=== PATIENT | female | born 1955 | race African-American/Black ===

== ENCOUNTER 2016-06-12 10:51 | Inpatient (IN) ==
[2016-06-12 11:28] LABS: Basophils % 0.2 % (0.0-0.8); Eosinophils # 0.1 10*3/uL (0.0-0.87); Eosinophils % 1.7 % (0.00-10.9); Hematocrit 38.1 VOL% (35.7-47.0); Hemoglobin 11.9 GM/DL (12.0-16.0); Immature Granulocytes % 0.5 %; Immature Granulocytes Absolute 0.03 #; Lymphocytes # 2.2 10*3/uL (1.4-4.0); Lymphocytes % 36.2 % (21.3-54.2); Mean Corpuscular HGB Conc 31.2 GM/DL (32-36); Mean Corpuscular Hemoglobin 26 PG (27-34); Mean Corpuscular Volume 81.9 FL (87-102); Mean Platelet Volume 11.4 FL (9.6-12.0); Monocytes # 0.5 10*3/uL (0.11-0.8); Monocytes % 8.8 % (1.7-12.7); Neutrophils # 3.2 10*3/uL (1.4-7.4); Neutrophils % 52.6 % (38.7-73.9); Platelet Count 228 T/CUMM (130-400); Red Blood Count 4.65 MC/CUMM (3.8-5.5); Red Cell Distribution Width 14.5 % (9.3-17.3)
--- NOTE | 2016-06-12 11:34 | CT Report ---
CT of the head without contrast. Indication: Altered level of consciousness. Comparison: April 24, 2011. Within the left parietal lobe, there is new low density within white matter , moderately large in amount. There is no evidence of associated acute hemorrhage, there is no midline shift, or definite definable mass. No cortical infarcts are visible at this time. The ventricles are normal in size and configuration. The calvarium is intact. There is mild mucosal thickening within the ethmoid sinuses. There is calcification or postsurgical change involving the left globe. Impression: Interval development of an area of low density involving the white matter of the left parietal lobe. This could be related to a large area of subacute white matter ischemia, or could indicate vasogenic edema from infection or underlying mass. A contrasted MRI of the brain is recommended for further evaluation. PROCEDURE INTERPRETED AT [facility] DEPARTMENT OF RADIOLOGY Final Report Signed by: Dr. Abigail Santacruz
[2016-06-12] MEDS ORDERED: METOPROLOL TARTRATE 5 MG/5 ML VIAL IV STA (11:39)
--- NOTE | 2016-06-12 11:39 | Emergency Department Note ---
Salinas Kemp Brittany, am scribing for, and in the presence of, Stan Ordonez M.D. 11:32. José Luis Kemp Howard T, M.D., personally performed the services described in this documentation, ascribed by Marisel Niño in my presence, and it is both accurate and complete [id number] . Arrival - Arrival Chief Complaint: Neuro Stated Complaint: altered mental status ED Nursing Triage Note: pt reports increased confusion cant get out her words with some left sided tingling. drove herself to dr howell office this am and sent here per ems from here Mode of Arrival: Stretcher Limitations: No Limitations Source: Patient, EMS, Old Records Reviewed, RN Notes Reviewed Time Seen by Provider: 06/12/16 11:10 - History of Present Illness HPI Narrative: This is a 61 y/o black female,who presents to the ED for further evaluation of confusion. She states the confusion started 2 weeks ago, and has slowly gotten worse. Per EMS, she drove herself to her PCP, Dr. Howell. She complains of blurry vision to the right side and numbness to her fingers on the left hand. She denies any SOB, CP or RODRIGUEZ. Pt states she is unable to remember what new medication she started, but she knows she did start a new medication. She is unsure of if she fell but does have a contusion to the right side of her forehead. Pt has no other complaints/pain in the ED at this time. Pt has a PMHx of [place], HTN, heart murmur, NIDDM, dyslipidemia,and GERD. Pt has had a tubal ligation. Pt denies a family medical Hx. Pt denies a social Hx. Onset (ago): week(s) (Started 2 weeks ago) Consistency: constant Severity: moderate Allergies/Adverse Reactions: Allergies Allergy/AdvReac Type Severity Reaction Status Date / Time No Known Allergies Allergy Unverified 08/06/14 10:08 Home Medications: Home Medications Medication Instructions Recorded Confirmed Type Cyclobenzaprine [Flexeril] 10 mg PO Q6HR 08/06/14 08/06/14 History Escitalopram [Lexapro] 10 mg PO DAILY 08/06/14 08/06/14 History Gabapentin Cap/Tab [Neurontin 600 mg PO BEDTIME 08/06/14 08/06/14 History Cap/Tab] Meloxicam [Mobic] 7.5 mg PO BID 08/06/14 08/06/14 History Ramipril [Altace] 10 mg PO BID 08/06/14 08/06/14 History Tramadol HCl [Tramadol Tab] 50 mg PO Q6HR PRN #30 tablet 08/06/14 Rx Zolpidem Tartrate [Zolpidem 10 mg PO BEDTIME 08/06/14 08/06/14 History Tartrate] rOPINIRole [Requip] 1 mg PO BEDTIME 08/06/14 08/06/14 History Review of System - Review of System 12 point system: reviewed and no additional remarkable complaints except as stated - Review of System Eyes: Present: vision change (Blurry vision to the right eye) Cardiovascular: Absent: chest pain, palpitations, dyspnea on exertion Gastrointestinal: Absent: abdominal pain Neurological: Present: numbness (Numbness to the fingers on the left hand), confusion. Absent: headache Medical,Surgical,& Family Hx - Medical History Cardio: History of: Aneurysm (heart murmur), Hypertension, [place] Endocrine: History of: Diabetes Mellitus (NIDDM), Dyslipidemia Gastrointestinal: History of: GERD - Surgical History Reproductive Surgeries: Surgical HX of;: Tubal Ligation - Social History Smoking Status: Never smoker Frequency of Alcohol Use: None Type of Drug Use: None Lives With:: Children Exam Vital Signs: Vital Signs Temperature 97.6 F 06/12/16 10:51 Pulse Rate 84 06/12/16 10:51 Respiratory Rate 18 06/12/16 11:28 Blood Pressure 218/96 06/12/16 10:51 O2 Sat by Pulse Oximetry 100 06/12/16 10:51 - General General appearance: alert, in no apparent distress - Head Head exam: Present: other (Contusion to the right side of forehead) - Eye Eye exam: Present: normal appearance, PERRL, EOMI. Absent: nystagmus - ENT ENT exam: Present: normal exam, normal oropharynx, mucous membranes moist - Neck Neck exam: Present: normal inspection, full ROM, trachea midline. Absent: tenderness, thyromegaly - Chest Chest inspection: Present: normal inspection, symmetric chest wall rise. Absent : tenderness, rash, abscess - Respiratory Respiratory exam: Present: normal lung sounds bilaterally. Absent: prolonged expiratory phase, rales, respiratory distress, rhonchi, stridor, wheezes - Cardiovascular Cardiovascular exam: Present: regular rate, normal rhythm, normal heart sounds. Absent: murmur, rubs, gallop, clicks - Abdominal Exam Abdominal exam: Present: soft, normal bowel sounds. Absent: distention, tenderness, guarding, rebound, rigidity - Extremities Exam Extremities exam: Present: normal inspection, full ROM, normal capillary refill. Absent: tenderness, pedal edema, joint swelling, calf tenderness - Back Exam Back exam: Present: normal inspection, full ROM. Absent: tenderness, muscle spasm, rashes - Neurological Exam Neurological exam: Present: alert (Alert but confused), CN II-XII intact, reflexes normal, other. Absent: oriented X3 (Disoriented to time and place, oriented to person ), motor sensory deficit - Psychiatric Psychiatric exam: Present: normal affect, normal mood. Absent: depressed, agitated, anxious, manic - Skin Skin exam: Present: warm, dry, intact, normal color. Absent: rash, cyanosis, diaphoresis Course Course Narrative: Medical decision making: History and exam and CT scan suggests some type of neurologic process causing her symptoms, no indication for transfer will admit to hospitalist service with neurology consult. Results - Labs CBC & BMP: 06/12/16 11:03 Lab Results: I have reviewed the patients labs - Diagnostic Findings Procedure: CT: report reviewed by me (CT head without contrast: Intreval development of an area of low denstity invloving the white matter of the left parietal lob. This could be related to a large area of subacute white matter ischemia, or could indicate vasogenic edema from infection or underlying mass. A contrasted MRI of the brain is reccomned for further evaluation. ) Disposition Clinical Impression: Cerebrovascular accident, Convulsions, HTN (hypertension) Case discussed with: patient Disposition: Disch/Xfer-Ipshort Term Hos Condition: Stable Time of Disposition: 11:38
[2016-06-12 11:43] LABS: Alanine Aminotransferase 24 U/L (13-56); Albumin 3.2 G/DL (3.4-5.0); Alkaline Phosphatase 81 U/L (45-117); Aspartate Amino Transferase 16 U/L (0-37); Bilirubin,Total < 0.39 MG/DL (0.2-1.0); Blood Urea Nitrogen 18 MG/DL (7-18); Calcium 9.3 MG/DL (8.5-10.1); Glucose 77 MG/DL (74-106); Osmolality,Calculated 283.1 MOS/KG (273-304); Potassium 4.1 MMOL/L (3.5-5.1); Sodium 142 MMOL/L (136-145); Total Protein 7.7 G/DL (6.4-8.3); Troponin I Only < 0.015 NG/ML (0.00-0.045)
[2016-06-12] MEDS ORDERED: ONDANSETRON 4 MG/2 ML VIAL IV PRN (11:45)
[2016-06-12] MEDS ORDERED: LACTULOSE 20 GM/30 ML UDCUP PO PRN (11:45)
[2016-06-12 11:51] LABS: Amorphous Crystals,Urine Few /HPF (Few); Apearance,Urine Slightly Hazy (Clear); Bilirubin,Urine Negative (Negative); Blood, Urine Small mg/dL (Negative); Glucose,Urine (UA) Negative (Negative); Ketones,Urine Negative (Negative); Mucus,Urine Occasional /LPF (Occasional); Nitrite,Urine Negative (Negative); Protein,Urine Negative; RBC,Urine 4 /HPF (0-4); Squamous Epithelial Cell,Urine Occasional /HPF (0-10); Urine Color Yellow (Yellow); Urine Specific Gravity 1.019 (1.001-1.035); WBC,Urine <1 /HPF (0-6)
[2016-06-12 11:59] LABS: Alcohol Patient Result Negative (Negative); Barbiturates Screen,Urine Negative (Negative); Benzodiazepines Screen,Urine Negative (Negative); Cannabinoid Screen,Urine Negative (Negative); Opiate Screen,Urine Negative (Negative); Phencyclidine Screen,Urine Negative (Negative)
[2016-06-12] MEDS ORDERED: SODIUM CHLORIDE 0.9% 1,000 ML IV SCH (12:00)
[2016-06-12 12:10] LABS: Risk Ratio 3.59; VLDL CHOLESTEROL 26.4 MG/DL
--- NOTE | 2016-06-12 12:24 | Ultrasound Report ---
US carotid duplex BI Indication: Expressive aphasia, confusion. CAROTID ULTRASOUND Comparison: None. Findings: Grayscale, color Doppler and pulsed Doppler interrogation of the carotid and vertebral arteries performed. Severity of stenosis based on flow velocity measurements using NASCET criteria. Distal right ICA diameter: 6.6 mm Distal left ICA diameter: 6.6 mm Peak systolic flow velocities in centimeters per second are as follows: Right: CCA: 112 cm/s Proximal ICA: 103 Distal ICA: 95 ICA/CCA ratio: 0.9 Left: CCA: 121 cm/s Proximal ICA: 110 Distal ICA: 118 ICA/CCA ratio: 1.0 External carotid arteries: Both are patent with antegrade flow. Vertebral arteries: Both are patent with antegrade flow. Grayscale and color Doppler images: No significant focal plaque deposition identified, with normal color Doppler flow present. Pulse Doppler waveform interrogation: No significant spectral broadening. Impression: No hemodynamically significant stenosis of either ICA origin. PROCEDURE INTERPRETED AT [facility] DEPARTMENT OF RADIOLOGY Final Report Signed by: Reji Ching M.D.
[2016-06-12] MEDS ORDERED: METOPROLOL TARTRATE 5 MG/5 ML VIAL IV ONE (13:01)
--- NOTE | 2016-06-12 14:29 | Hospitalist History & Physical ---
Assessment and Plan - Time spent with patient Time spent with patient: Greater than 30 minutes (1) Cerebrovascular accident Status: Acute Assessment and plan: admit pt to med surg MRI brain with contrast as recommended by radiology per CT report Lipid panel, carotid dopplers, ECHO start on ASA 325 daily DVT prophylaxis PRN meds routine labs in AM resume home BP meds further plan and addendum to follow per Dr. Busch Current Visit: Yes (2) HTN (hypertension) Status: Acute Current Visit: Yes History of Present Illness Chief complaint: expressive aphasia History of present illness: Ms. Bird is a 61 year old female who presents to the ER today with expressive aphasia. She is awake and alert, she is aware of her location and tells me that she is able to identify objects such as phone and glove, but she is unable to produce the word. She is upset and crying. She tells me that her family just thinks she is confused but she is not confused. Her states he first noted symptoms one week ago, with sudden onset. Pt has some minimal weakness in her left leg, subjective. She has no facial droop or slurred speech. Her CT brain shows an area of low density involving the white matter of the left parietal lobe. Radiology has recommended MRI with contrast for further eval. She is hemodynamically stable at present. PMH includes HTN, DLD, heart murmur, Gerd. PSH of tubal ligation and . She does not smoke, drink or use drugs. Her PCP is Dr. Varghese. At present she denies chest pain, shortness of breath, fever, chills, headache, abdominal pain, n/v/d, dysuria. She does have bilat lower ext edema, she tells me this is normal for her. Home Medications Medication Instructions Recorded Confirmed Type Cyclobenzaprine [Flexeril] 10 mg PO Q8H PRN 08/06/14 06/12/16 History Escitalopram [Lexapro] 10 mg PO DAILY 08/06/14 06/12/16 History Meloxicam [Mobic] 7.5 mg PO BID 08/06/14 06/12/16 History Zolpidem Tartrate [Zolpidem 10 mg PO BEDTIME PRN 08/06/14 06/12/16 History Tartrate] rOPINIRole [Requip] 1 mg PO BEDTIME 08/06/14 06/12/16 History Furosemide Tab [Lasix Tab] 40 mg PO DAILY 06/12/16 06/12/16 History Gabapentin 100 mg PO QPM PRN 06/12/16 06/12/16 History Labetalol Tab [Trandate Tab] 200 mg PO BID 06/12/16 06/12/16 History Losartan Potassium 100 mg PO DAILY 06/12/16 06/12/16 History Phentermine HCl 37.5 mg PO DAILY 06/12/16 06/12/16 History Potassium Chloride 8 meq PO DAILY 06/12/16 06/12/16 History Topiramate 50 mg PO DAILY 06/12/16 06/12/16 History metFORMIN [Glucophage] 850 mg PO DAILY 06/12/16 06/12/16 History Allergies Allergy/AdvReac Type Severity Reaction Status Date / Time No Known Allergies Allergy Unverified 08/06/14 10:08 Medical,Surgical,& Family Hx - Medical History Cardio: History of: Aneurysm (heart murmur), Hypertension, [place] Endocrine: History of: Diabetes Mellitus (NIDDM), Dyslipidemia Gastrointestinal: History of: GERD - Surgical History Reproductive Surgeries: Surgical HX of;: Tubal Ligation - Social History Smoking Status: Never smoker Frequency of Alcohol Use: None Type of Drug Use: None 12 point system: reviewed and no additional remarkable complaints except as stated Exam - Constitutional Vitals: Period Temp Pulse Resp BP Sys/Griffin Pulse Ox Last 24 Hr 97.6 F-97.6 F 84-84 18-18 218-218/96-96 100 General appearance: no acute distress, morbidly obese - Head Head exam: Present: normal inspection, normocephalic - Eye Eye exam: Present: EOMI. Absent: scleral icterus Pupils: Present: BILLY, normal accommodation - ENT ENT exam: Present: normal exam, normal oropharynx - Neck Neck exam: Present: normal inspection. Absent: lymphadenopathy - Respiratory Respiratory exam: Present: clear to auscultation bilaterally. Absent: wheezes - Cardiovascular Cardiovascular exam: Present: regular rate and rhythm. Absent: tachycardia - GI/Abdominal GI/Abdominal exam: Present: normal bowel sounds, soft. Absent: tenderness - Extremities Exam Extremities exam: Present: normal inspection, full ROM. Absent: edema - Back Exam Back exam: Present: normal inspection. Absent: muscle spasm - Neurological Exam Neurological exam: Present: alert - Expanded Neurological Exam Neurological exam: Present: expressive aphasia Patient oriented to: Present: person Speech: Present: expressive aphasia Coma Scale Motor Response: Obeys Commands - Psychiatric Psychiatric exam: Present: normal affect, normal mood - Skin Skin exam: Present: normal color, warm, dry Results - Labs CBC & BMP: 06/12/16 11:03 06/12/16 11:03 Lab Results: I have reviewed the past 24 hour labs Quality Measures - Stroke Symptom Onset Unknown: Yes
[2016-06-12] MEDS ORDERED: ASPIRIN 325 MG TABLET ONE (15:07)
[2016-06-12] MEDS ORDERED: ACETAMINOPHEN 500 MG TABLET ONE (15:07)
[2016-06-12] MEDS: ASPIRIN 325 MG TABLET PO SCH (15:20)
[2016-06-12] MEDS: ACETAMINOPHEN 325 MG TABLET PO PRN ×2 (15:20→20:03)
[2016-06-12] MEDS ORDERED: LABETALOL 20 MG/4 ML SYRINGE IV PRN (15:34)
--- NOTE | 2016-06-12 16:57 | Magnetic Resonance Report ---
MRI of the brain with and without contrast. Indication: Altered level of consciousness. Confusion. Left-sided tingling. Blurry vision. CT of the head performed today demonstrated low density in the left parietal lobe raising concern for stroke, mass, or infectious process. Axial diffusion, axial ADC, axial T1, axial flair, axial T2, sagittal T1, axial T1 postcontrast on the sagittal T1 postcontrast, coronal T1 postcontrast. 20 cc gadolinium. No previous study. Corresponding to the area of abnormality seen on today's CT, in the left parieto-occipital white matter, there is a homogeneous rounded lesion measuring 2.9 cm in the craniocaudal dimension, 2.4 cm in the transverse dimension, and 3.0 cm in the AP dimension. It is hypointense on T1 and hyperintense on T2 and FLAIR. There is an incomplete ring along the lateral margin, which is low on T1, low on FLAIR, and increased on T2. On the diffusion images, there is slight increased signal corresponding to the mass, with a ring of intense signal surrounding it consistent with restricted diffusion. The ADC images demonstrate mildly increased signal corresponding to the mass, with decreased signal involving the rim. There is a small amount of surrounding vasogenic edema, without significant mass effect on the left lateral ventricle and with no evidence of midline shift. No enhancement of this lesion is seen. No evidence of hemorrhage. The venous sinuses are patent. Within the white matter of both cerebral hemispheres, there are a few tiny foci of white matter signal abnormality, nonspecific. No other areas of similar abnormality are seen. There is minimal opacification of both mastoid air cells. There is limited visualization of a mass lesion, of the left neck, closely associated with the left parotid gland, only partially included on this exam. This lesion measures 2.5 cm in AP dimension and is not completely included on the craniocaudal dimension. Its transverse dimension is 2.0 cm. This lesion is low T1 signal and enhances avidly with small associated cystic areas. Impression: 1. Corresponding to the abnormality seen on today's earlier CT, there is a homogeneous nonenhancing 2.4 x 3.0 cm intra-axial white matter mass in the left parieto-occipital lobe, with a small amount of surrounding edema. Primary brain neoplasm is a primary consideration, with low-grade astrocytoma being the most common intra-axial lesion without enhancement. Numerous other primary brain malignancies can present with this appearance.. Metastatic foci are more likely to have enhancement and increased surrounding edema. However, with the presence of a soft tissue mass in the left neck, metastatic disease must also be considered. This appearance is atypical for an ischemic lesion or an infectious lesion. The findings are also atypical for an inflammatory lesion or a demyelinating lesion. Careful clinical correlation is recommended. 2. Within the left neck, and only partially included on this exam, is an enhancing soft tissue mass with cystic areas, in the 2.5 cm range, closely associated with the left parotid gland. A contrasted CT of the soft tissues of the neck is recommended for further evaluation. 3. Small white matter signal abnormalities nonspecific, but likely related to chronic microvascular ischemia. PROCEDURE INTERPRETED AT [facility] DEPARTMENT OF RADIOLOGY Final Report Signed by: Dr. Abigail Santacruz
--- NOTE | 2016-06-12 18:15 | ECHO Report ---
Inga Bird Exam Date: 06/12/2016 12:35 Referring Physician: Technologist: Betty GRANADOS Age: 61 Ht (in): Wt (lb): Gender: F Exam Location: [facility] Echo Indications: R/o Stoke BP: / HR: Rhythm: Sinus Technical Quality: Good IMPRESSIONS No obvious embolic source. No mass or thrombus seen. Moderate concentric left ventricular hypertrophy with diastolic dysfunction. Left ventricular ejection fraction is estimated at >65 %. The left atrium is mildly enlarged. Mildly thickened mitral valve with mild mitral regurgitation. Aortic valve sclerosis without stenosis or regurgitation. Moderate tricuspid valve regurgitation. Tricuspid regurgitation velocities suggest a PAP of 24.6 mmHg + RAP. MEASUREMENTS (Male / Female) Normal Values 2D ECHO LV Diastolic Diameter PLAX 4.4 cm 4.2 - 5.9 / 3.9 - 5.3 cm LV Systolic Diameter PLAX 3.4 cm LV Fractional Shortening PLAX 22.4 % IVS Diastolic Thickness 1.5 cm 0.6 - 1.0 / 0.6 - 0.9 cm LVPW Diastolic Thickness 1.4 cm 0.6 - 1.0 / 0.6 - 0.9 cm RV Internal Dim ED PLAX 2.3 cm Aortic Root Diameter 2.7 cm LA Systolic Diameter LX 3.7 cm 3.0 - 4.0 / 2.7 - 3.8 cm DOPPLER TR Peak Velocity 248.0 cm/s TR Peak Gradient 24.6 mmHg FINDINGS Left Ventricle Moderately increased septal wall thickness. Moderately increased posterior wall thickness. Moderate concentric left ventricular hypertrophy with diastolic dysfunction. Left ventricular ejection fraction is estimated at >65 %. Right Ventricle Normal right ventricular size and systolic function. Right Atrium Normal right atrial size. Left Atrium The left atrium is mildly enlarged. Mitral Valve Mildly thickened mitral valve with mild mitral regurgitation. Aortic Valve Aortic valve sclerosis without stenosis or regurgitation. Tricuspid Valve Morphologically normal tricuspid valve. Moderate tricuspid valve regurgitation.tricuspid regurgitation velocities suggest a PAP of 24.6 mmHg + RAP. Pulmonic Valve Morphologically normal pulmonic valve. Pericardium No pericardial effusion. Aorta Normal size aortic root and proximal ascending aorta. Anuj Edward MD (Electronically Signed) Final Date: 12 June 2016 18:14
[2016-06-12] MEDS: DEXAMETHASONE 4 MG TABLET PO SCH (21:38)
[2016-06-13 08:58] LABS: Basophils % 0.2 % (0.0-0.8); Hematocrit 37.4 VOL% (35.7-47.0); Hemoglobin 11.6 GM/DL (12.0-16.0); Immature Granulocytes % 0.5 %; Immature Granulocytes Absolute 0.03 #; Lymphocytes # 1.2 10*3/uL (1.4-4.0); Lymphocytes % 20.6 % (21.3-54.2); Mean Corpuscular Hemoglobin 25 PG (27-34); Mean Platelet Volume 11.5 FL (9.6-12.0); Monocytes # 0.1 10*3/uL (0.11-0.8); Monocytes % 2.3 % (1.7-12.7); Neutrophils # 4.6 10*3/uL (1.4-7.4); Neutrophils % 76.4 % (38.7-73.9); Platelet Count 229 T/CUMM (130-400); Red Blood Count 4.56 MC/CUMM (3.8-5.5); Red Cell Distribution Width 14.4 % (9.3-17.3)
[2016-06-13] MEDS: PANTOPRAZOLE 40 MG TABLET PO SCH (09:22)
[2016-06-13] MEDS: ASPIRIN 325 MG TABLET PO SCH (09:22)
[2016-06-13] MEDS: DEXAMETHASONE 4 MG TABLET PO SCH ×2 (09:22→20:44)
[2016-06-13 09:39] LABS: Alanine Aminotransferase 21 U/L (13-56); Albumin 3.2 G/DL (3.4-5.0); Alkaline Phosphatase 74 U/L (45-117); Aspartate Amino Transferase 10 U/L (0-37); Bilirubin,Total < 0.39 MG/DL (0.2-1.0); Blood Urea Nitrogen 15 MG/DL (7-18); Calcium 8.9 MG/DL (8.5-10.1); Glucose 139 MG/DL (74-106); Osmolality,Calculated 288.8 MOS/KG (273-304); Potassium 4.2 MMOL/L (3.5-5.1); Sodium 144 MMOL/L (136-145); Total Protein 7.2 G/DL (6.4-8.3)
--- NOTE | 2016-06-13 10:48 | Hospitalist Progress Note ---
Assessment and Plan (1) Brain mass Status: Acute Assessment and plan: Suspected of neoplasm. Awaiting transfer to [facility] for evaluation by neuro and neurosurgery. Continue Decadron and Keppra was changed Back to by mouth Current Visit: Yes (2) HTN (hypertension) Status: Acute Assessment and plan: Blood pressure readings improved and controlled last reading Current Visit: Yes Hospitalist: Subjective Interval history: Ms Bird is 61 his old female with history of diverticulitis hypertension and dyslipidemia. Also has history of coronary artery disease. Per her that her blood pressure and diabetes are controlled medications. She has been on multiple medications at home in addition to other medication I see she has been on Adipex. She will report to be confused from last week or so but today was more than usual and she could not remember her name or anything she went to her physician and end up into the ER where she was evaluated . She was noted to have some dysphagia and daughter had reported that when she was walking she was leaning more on the left side. Evaluation in the ER with the CT scan reported to have low density involving the white matter of the left parietal lobe consistent with a subacute CVA. Carotid Dopplers was negative . MRI result reviewed showed 2.4x 3 cm mass suspected for neoplasm. Patient was started on Decadron and Keppra. [facility] was called she is accepted for the Taxotere pending bed accepted by Dr. Holliday Patient this morning is awake and alert she is able to eat well without any swallowing problem she c/o headache but has not taken any prn medications ordered but willing to take now. Her speech is improved she still needed assistance in going to the bathroom Exam - Constitutional Vitals: Period Temp Pulse Resp BP Sys/Griffin Pulse Ox Last 24 Hr 96.4 F-98.7 F 60-89 18-22 124-218/52-96 96-100 General appearance: no acute distress - Eye Eye exam: Present: EOMI Pupils: Present: BILLY - Respiratory Respiratory exam: Present: clear to auscultation bilaterally. Absent: rales, rhonchi - GI/Abdominal GI/Abdominal exam: Present: normal bowel sounds, soft. Absent: tenderness - Extremities Exam Extremities exam: Present: normal inspection, edema (mild) - Neurological Exam Neurological exam: Present: alert, oriented X3, other (right-sided weakness. Compare to left) Results - Labs CBC & BMP: 06/13/16 08:19 06/13/16 08:19 Lab Results: I have reviewed the past 24 hour labs Quality Measures - Stroke Symptom Onset Unknown: Yes
[2016-06-13] MEDS: MORPHINE 2 MG/1 ML SYRINGE IV PRN (13:42)
[2016-06-13] MEDS: levETIRAcetam 500 MG TABLET PO SCH (20:44)
[2016-06-13] MEDS ORDERED: ZOLPIDEM 5 MG TABLET PO PRN (21:11)
[2016-06-13] MEDS: ZALEPLON 5 MG CAPSULE PO PRN (21:26)
--- NOTE | 2016-06-13 21:49 | EKG Report ---
Stationary ECG Study [facility] ER Test Date: 06/12/2016 10:57:42 AM Pat Name: MIIRAM OTT Department: Room: 421 Gender: F Insert Cutter: : 1955 Requested by: Stan Barragan Order Number: [id number] Reading MD: LELE HOOD Intervals [place] Rate: 77 P: 50 NM: 147 QRS: -17 QRSD: 94 T: 44 QT: 374 QTc: 406 Interpretive Statements SINUS RHYTHM POSSIBLE ANTERIOR MYOCARDIAL INFARCTION, OF INDETERMINATE AGE Electronically Signed On 06-14-16 12:12:52 [employer] by LELE HOOD [email or web address]
--- NOTE | 2016-06-14 07:40 | Hospitalist Progress Note ---
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 She is still bothered by headache and memory. Vitals stable and awaiting arrangements for transfer to [facility]. Exam - Constitutional Vitals: Period Temp Pulse Resp BP Sys/Griffin Pulse Ox Last 24 Hr 96.4 F-97.4 F 67-92 18-20 119-189/58-83 0-100 General appearance: over weight - Respiratory Respiratory exam: Present: clear to auscultation bilaterally. Absent: rales, rhonchi, wheezes - Cardiovascular Cardiovascular exam: Present: regular rate and rhythm - GI/Abdominal GI/Abdominal exam: Present: normal bowel sounds - Neurological Exam Neurological exam: Present: alert, oriented X3 Results - Labs CBC & BMP: 06/13/16 08:19 06/13/16 08:19 Quality Measures - Stroke Symptom Onset Unknown: Yes
[2016-06-14] MEDS: levETIRAcetam 500 MG TABLET PO SCH ×2 (09:26→20:18)
[2016-06-14] MEDS: PANTOPRAZOLE 40 MG TABLET PO SCH (09:26)
[2016-06-14] MEDS: ASPIRIN 325 MG TABLET PO SCH (09:26)
[2016-06-14] MEDS: DEXAMETHASONE 4 MG TABLET PO SCH ×2 (09:27→20:18)
[2016-06-14] MEDS: busPIRone 5 MG TABLET PO SCH ×2 (09:27→20:19)
[2016-06-14] MEDS: LABETALOL 200 MG TABLET PO SCH ×2 (12:33→20:17)
[2016-06-14] MEDS: LOSARTAN 50 MG TABLET PO SCH (12:33)
--- NOTE | 2016-06-14 14:28 | Neurology Consult Note ---
History of Present Illness History of present illness: Ms. Bird is a 61 year old female who presents to the ER with headaches, confusion and difficulty in processing her thoughts. She is awake and alert, she is aware of her location and tells me that she is able to identify objects such as phone and glove, but she is unable to produce the word. She tells me that her family just thinks she is confused but she is not confused. Her states he first noted symptoms one week ago, with sudden onset. Pt has some minimal weakness in her left leg. She has no facial droop or slurred speech. Her CT brain shows an area of low density involving the white matter of the left parietal lobe. MRI of the brain reveals possible intraparenchymal primary neoplasm. She also has another cystic lesion in the cervical area. She is hemodynamically stable at present. PMH includes HTN, DLD, heart murmur, Gerd. PSH of tubal ligation and . She does not smoke, drink or use drugs. At the present time she is on Decadron and Keppra. She is awaiting to be transferred to [facility] for further evaluation by neurosurgery. Home Medications Medication Instructions Recorded Confirmed Type Cyclobenzaprine [Flexeril] 10 mg PO Q8H PRN 08/06/14 06/12/16 History Escitalopram [Lexapro] 10 mg PO DAILY 08/06/14 06/12/16 History Meloxicam [Mobic] 7.5 mg PO BID 08/06/14 06/12/16 History Zolpidem Tartrate [Zolpidem 10 mg PO BEDTIME PRN 08/06/14 06/12/16 History Tartrate] rOPINIRole [Requip] 1 mg PO BEDTIME 08/06/14 06/12/16 History Furosemide Tab [Lasix Tab] 40 mg PO DAILY 06/12/16 06/12/16 History Gabapentin 100 mg PO QPM PRN 06/12/16 06/12/16 History Labetalol Tab [Trandate Tab] 200 mg PO BID 06/12/16 06/12/16 History Losartan Potassium 100 mg PO DAILY 06/12/16 06/12/16 History Phentermine HCl 37.5 mg PO DAILY 06/12/16 06/12/16 History Potassium Chloride 8 meq PO DAILY 06/12/16 06/12/16 History Topiramate 50 mg PO DAILY 06/12/16 06/12/16 History metFORMIN [Glucophage] 850 mg PO DAILY 06/12/16 06/12/16 History Allergies Allergy/AdvReac Type Severity Reaction Status Date / Time No Known Allergies Allergy Unverified 08/06/14 10:08 12 point system: reviewed and no additional remarkable complaints except as stated Medical,Surgical,& Family Hx - Medical History Cardio: History of: Aneurysm (heart murmur), Hypertension, DC Endocrine: History of: Diabetes Mellitus (NIDDM), Dyslipidemia Gastrointestinal: History of: GERD - Surgical History Neurologic Surgeries: Patient denies: Neurologic Surgery Reproductive Surgeries: Surgical HX of;: Section, Tubal Ligation Patient denies;: Genitourinary Surgery - Family History Family History: Reports;: Family Diabetes (mother), Family Hypertension - Social History Smoking Status: Never smoker Frequency of Alcohol Use: None Type of Drug Use: None Exam - Constitutional Vitals: Period Temp Pulse Resp BP Sys/Griffin Pulse Ox Last 24 Hr 96.4 F-97.4 F 57-92 18-20 119-197/64-88 0-99 Exam: GENERAL: Patient is in no acute distress. NECK: Neck is supple. There is no JVD. No carotid bruits present. No thyroid masses. CVS: First and second heart sounds are normal. There is no S3 present. Regular rate and rhythm. RESPIRATORY: Lungs are clear to auscultation without any rales or rhonchi. ABDOMEN: Soft and non-tender. Bowel sounds are present. There is no hepatosplenomegaly. EXT: There is no palpable edema. Peripheral pulses are present. Skin: No rashes Central Nervous system: General: Alert, awake and Oriented x 3 Speech: Fluent Comprehension: Fair Facial expressions: Normal Cranial Nerves: CN1/Olfactory: Normal CN II/ Optic: Normal, Visual Farias unreliable CN III, and : BILLY & EOMI CN V: Normal & intact CN VII: face is symmetric CNVIII: Normal CN XI/X/XI/XII: Intact and Normal Motor: Bulk and Tone is normal. Strength in the right 4/5 Strength in the left 5/5 Sensory: Grossly intact for all the modalities of PP, LT and temp sense Reflexes: 1+ and symmetrical Cerebellar function: Normal finger to nose and heel to miranda testing. Gait: Somewhat ataxic gait Results - Labs CBC & BMP: 06/13/16 08:19 06/13/16 08:19 Assessment and Plan (1) Primary neoplasm of brain Status: Acute Assessment and plan: Continue Decadron and Keppra at the same dose Definitely need neurosurgical evaluation as soon as possible Awaiting transfer to [facility]. Signoff please call when necessary Current Visit: Yes
[2016-06-14] MEDS: ZALEPLON 5 MG CAPSULE PO PRN (22:28)
[2016-06-14] MEDS: MORPHINE 2 MG/1 ML SYRINGE IV PRN (22:28)
--- NOTE | 2016-06-15 06:57 | Hospitalist Progress Note ---
Assessment and Plan (1) Brain mass Status: Acute Assessment and plan: Awaiting transfer for neurosurgical evaluation. Current Visit: Yes (2) HTN (hypertension) Status: Chronic Current Visit: Yes Hospitalist: Subjective Interval history: 61 yo female presenting with headache and memory problems with MRI consistent with primary [employer] neoplasm involving white matter on the left side (mention is also made of cystic lesion in area of parotid gland on the left as well). She is on the list for transfer to [facility]. She reports much improved headache on Decadron. Anti-hypertensive medications resumed 06/14. Vital stable and afebrile. Exam - Constitutional Vitals: Period Temp Pulse Resp BP Sys/Griffin Pulse Ox Last 24 Hr 96.4 F-98.6 F 57-76 16-20 158-197/78-88 94-100 General appearance: over weight - Respiratory Respiratory exam: Present: clear to auscultation bilaterally. Absent: rales, rhonchi, wheezes - Cardiovascular Cardiovascular exam: Present: regular rate and rhythm - GI/Abdominal GI/Abdominal exam: Present: normal bowel sounds - Extremities Exam Extremities exam: Absent: edema - Neurological Exam Neurological exam: Present: alert, oriented X3 Results - Labs CBC & BMP: 06/13/16 08:19 06/13/16 08:19 Quality Measures - Stroke Symptom Onset Unknown: Yes
[2016-06-15] MEDS: busPIRone 5 MG TABLET PO SCH ×2 (09:48→20:17)
[2016-06-15] MEDS: ASPIRIN 325 MG TABLET PO SCH (09:49)
[2016-06-15] MEDS: DEXAMETHASONE 4 MG TABLET PO SCH ×2 (09:50→20:17)
[2016-06-15] MEDS: LABETALOL 200 MG TABLET PO SCH ×2 (09:50→20:17)
[2016-06-15] MEDS: PANTOPRAZOLE 40 MG TABLET PO SCH (09:50)
[2016-06-15] MEDS: LOSARTAN 50 MG TABLET PO SCH (09:51)
[2016-06-15] MEDS: levETIRAcetam 500 MG TABLET PO SCH ×2 (09:51→20:17)
[2016-06-15 15:47] VITALS: BP 140/75
[2016-06-15] MEDS: ACETAMINOPHEN 325 MG TABLET PO PRN (16:00)
--- NOTE | 2016-06-15 18:33 | Discharge Summary ---
Hospital Course - Hospital Course Hospital Course: 61-year-old female presents presents to emergency room with expressive aphasia. CT of her brain shows low density lesion involving the white matter of the left parietal lobe. She was started on an aspirin. MRI was performed and Dr. Vargas was consulted. MRI shows a enhancing white matter mass in the left parietal occipital lobe with a small amount of surrounding edema. Primary brain neoplasm is primary consideration. Dr. Vargas saw patient on the at which time he recommended Decadron and Keppra with neurosurgical evaluation at [facility]. Dr. Alvarez had contacted [facility] today and requested transfer. Patient has been accepted for transfer at [facility]. I have never seen this patient but I am doing the discharge summary on request of nursing as it had not been done by the primary attending. Echocardiogram showed an EF of 65% with mild left concentric hypertrophy and diastolic dysfunction. Carotid Dopplers were performed and showed no hemodynamically significant stenosis of either ICA. Total cholesterol is 194, LDL 122, triglycerides 132, HDL 54. Transfer to [facility]. - Time spent with patient Time with patient DS: Less than 30 minutes Discharge Plan - Discharge Data Disposition: Disch/Xfer-Ipshort Term Hos Condition at Discharge: Stable Discharge Diet: heart healthy Activity: other - Discharge Medications New Aspirin Tab 325 mg PO DAILY tablet Dexamethasone Tab [Decadron Tab] 4 mg PO BID tablet HYDROcodone/ACETAMIN 7.5-325 [[place] 7.5-325] 1 tablet PO Q4H PRN #0 tablet PRN Reason: Pain Moderate (4-7) Labetalol Tab [Trandate Tab] 200 mg PO BID tablet Lactulose Liquid [Chronulac] 20 gm PO Q4H PRN #0 udcup PRN Reason: Constipation Losartan [Cozaar] 100 mg PO DAILY tablet Ondansetron Inj [Zofran Inj] 4 mg IV Q4H PRN #0 vial PRN Reason: Nausea Pantoprazole Tab [Protonix Tab] 40 mg PO DAILY tablet Zaleplon [Sonata] 10 mg PO BEDTIME PRN #0 capsule PRN Reason: Insomnia busPIRone [Buspar] 5 mg PO BID tablet Acetaminophen Tab [Tylenol Tab] 325 mg PO Q4H PRN #0 tablet PRN Reason: fever, headache/body aches Morphine Inj 2 mg IV Q4H PRN #0 syringe PRN Reason: Pain Severe (8-10) levETIRAcetam TAB [Keppra Tab] 500 mg PO BID tablet Discontinued Escitalopram [Lexapro] 10 mg PO DAILY Meloxicam [Mobic] 7.5 mg PO BID Zolpidem Tartrate [Zolpidem Tartrate] 10 mg PO BEDTIME PRN PRN Reason: Sleep rOPINIRole [Requip] 1 mg PO BEDTIME Cyclobenzaprine [Flexeril] 10 mg PO Q8H PRN PRN Reason: Pain Potassium Chloride 8 meq PO DAILY Phentermine HCl 37.5 mg PO DAILY Losartan Potassium 100 mg PO DAILY Labetalol Tab [Trandate Tab] 200 mg PO BID Furosemide Tab [Lasix Tab] 40 mg PO DAILY Topiramate 50 mg PO DAILY metFORMIN [Glucophage] 850 mg PO DAILY Gabapentin 100 mg PO QPM PRN PRN Reason: neuropathy - Follow Up or Referral - Forms/Instructions Exam - Constitutional Vitals: Period Temp Pulse Resp BP Sys/Griffin Pulse Ox Last 24 Hr 96.6 F-98.6 F 54-76 16-20 133-178/67-88 95-100 DS: Provider Date of admission: 06/12/16 11:45 Primary care physician: . No PCP Attending physician on admission: Ismael Wise M.D. Consults: 06/12/16 11:50 Consult to Pharmacy [CONS] Routine Reason for Pharmacy Consult: Adjust Meds Renal Funct 06/12/16 20:46 Consult to Dietitian [CONS] Routine Reason for Dietitian: Other Consult Comment: pt voices weight loss Discharging clinician: Angelina Bermudez MD
== END 2016-06-15 20:20 | disposition hospice, home (50) | DRG 54 ==
LOC: EDUNIT# → EDBD → N.EDINP 10:51 → N.ED 10:51 → OBSVTOIN 11:45 → SUATTDRO 11:45 → N.EDINP 17:20 → N.4E 19:43
PROVIDERS: ADMIT Internal Medicine; ATTEND Internal Medicine Cardiovascular Disease

== ENCOUNTER 2017-01-01 22:27 | Inpatient (IN) ==
[2017-01-01] MEDS ORDERED: hydrALAZINE 20 MG/1 ML VIAL IV STA (23:05)
[2017-01-01] MEDS ORDERED: ALUM/MAG/SIMETH/LIDO VISC 1:1 30 ML BOTTLE PO STA (23:05)
[2017-01-01] MEDS ORDERED: ONDANSETRON 4 MG/2 ML VIAL IV STA (23:05)
[2017-01-01] MEDS ORDERED: MORPHINE 2 MG/1 ML SYRINGE IV STA (23:05)
[2017-01-01] MEDS ORDERED: NITROGLYCERIN 2% OINT 1 INCH/GM PACK TOP STA (23:05)
[2017-01-01] MEDS ORDERED: ASPIRIN 325 MG TABLET PO STA (23:05)
[2017-01-01 23:22] LABS: Basophils % 0.4 % (0.0-0.8); Eosinophils # 0.3 10*3/uL (0.0-0.87); Eosinophils % 2.9 % (0.00-10.9); Hematocrit 36.6 VOL% (35.7-47.0); Hemoglobin 11.9 GM/DL (12.0-16.0); Immature Granulocytes % 0.5 %; Immature Granulocytes Absolute 0.05 #; Lymphocytes % 42.2 % (21.3-54.2); Mean Corpuscular HGB Conc 32.5 GM/DL (32-36); Mean Corpuscular Hemoglobin 25 PG (27-34); Mean Corpuscular Volume 77.2 FL (87-102); Monocytes # 0.7 10*3/uL (0.11-0.8); Monocytes % 7.6 % (1.7-12.7); NRBC # 0.05 10*3/uL; Neutrophils # 4.4 10*3/uL (1.4-7.4); Neutrophils % 46.4 % (38.7-73.9); Platelet Count 191 T/CUMM (130-400); Red Blood Count 4.74 MC/CUMM (3.8-5.5); Red Cell Distribution Width 15.2 % (9.3-17.3); White Blood Count 9.4 T/CUMM (4-12)
--- NOTE | 2017-01-01 23:29 | Emergency Department Note ---
Genny Kemp Gwan, am scribing for, and in the presence of, Nathan Arreguin MD 23 :17. Rodríguez Kemp Charles R, MD, personally performed the services described in this documentation, ascribed by Lydia Royal in my presence, and it is both accurate and complete 329 . Arrival - Arrival Chief Complaint: Chest Pain Stated Complaint: chest pain ED Nursing Triage Note: AMB TO ER WITH C/O CHEST PAIN THAT BEGAN 2 DAYS AGO. REPORTS HURTING IN MIDDLE OF CHEST RADIATING TO LEFT SHOULDER AND ARM. PATIENT RECENTLY DISCHARGED AT BEGINNING OF NOVEMBER FROM [facility] FOR NEW DIAGNOSIS OF MULTIPLE SCLEROSIS. Mode of Arrival: Ambulatory Limitations: No Limitations Source: Patient, Family, Old Records Reviewed, RN Notes Reviewed Time Seen by Provider: 01/01/17 23:00 - History of Present Illness HPI Narrative: Patient is a 61 y/o female, with a hx of Multiple Sclerosis, who presents to the ED with a c/o chest pain that radiates to her left shoulder and arm with an onset 2 days ago. Patient stated that she has also had nausea, SOB and cold sweats. She continued to note that she assumed that it was acid reflux. As the days progressed, her sxs worsened prompting her visit to the ED tonight for further evaluation. Nurses confirmed that patient was discharged form [facility] last month with a dx of MS. Patient confirmed that she has to learn how to walk and read again but denies that ability to write or any SHx of smoking cigarettes. While in ED, patient stated that her RODRIGUEZ and chest pain has eased. Pt has a PMHx of HTN, LA, dyslipidemia and GERD. No other problems/complaint reported in ED. Onset (ago): day(s) Consistency: constant Severity: moderate Allergies/Adverse Reactions: Allergies Allergy/AdvReac Type Severity Reaction Status Date / Time No Known Allergies Allergy Verified 01/01/17 22:41 Home Medications: Home Medications Medication Instructions Recorded Confirmed Type busPIRone [Buspar] 5 mg PO BID tablet 06/15/16 01/01/17 Rx levETIRAcetam TAB [Keppra Tab] 500 mg PO BID tablet 06/15/16 01/01/17 Rx Cholecalciferol (Vitamin D3) 5,000 unit PO Q7DAY 01/01/17 01/01/17 History [Vitamin D3] Dextromethorph/Quinidine 20-10 1 capsule PO BID PRN 01/01/17 01/01/17 History [Nuedexta] Ferrous Sulfate Tab [Feosol 325 mg PO TID 01/01/17 01/01/17 History Original Tab] Gabapentin 300 mg PO TID 01/01/17 01/01/17 History HYDROcodone/ACETAMIN 5-325 [[place] 1 tablet PO Q6H PRN 01/01/17 01/01/17 History 5-325] Labetalol Tab [Trandate Tab] 200 mg PO DAILY 01/01/17 01/01/17 History Losartan [Cozaar] 100 mg PO BEDTIME 01/01/17 01/01/17 History Natalizumab [Tysabri] 300 mg IV DIRECTED 01/01/17 01/01/17 History Omeprazole 20 mg PO DAILY 01/01/17 01/01/17 History Zolpidem Tartrate [Ambien] 10 mg PO BEDTIME 01/01/17 01/01/17 History Review of System - Review of System 12 point system: reviewed and no additional remarkable complaints except as stated - Review of System Constitutional: Present: as per HPI, other (cold sweats). Absent: fever Respiratory: Present: as per HPI, other (shortness of breathe) Cardiovascular: Present: as per HPI, chest pain Gastrointestinal: Present: as per HPI, nausea Medical,Surgical,& Family Hx - Medical History Cardio: History of: Hypertension, LA Neurology: History of: Multiple Sclerosis (11/2016) Endocrine: History of: Dyslipidemia Gastrointestinal: History of: GERD Musculoskeletal: History of: Musculoskeletal Problems (MS) - Surgical History Neurologic Surgeries: Patient denies: Neurologic Surgery Reproductive Surgeries: Surgical HX of;: Section, Tubal Ligation Patient denies;: Genitourinary Surgery - Family History Family History: Reports;: Family Diabetes (mother), Family Hypertension - Social History Smoking Status: Never smoker Frequency of Alcohol Use: None Type of Drug Use: None Exam Vital Signs: Vital Signs Temperature 98.2 F 01/01/17 22:30 Pulse Rate 87 01/01/17 22:30 Respiratory Rate 20 01/01/17 23:20 Blood Pressure 246/122 01/01/17 22:30 O2 Sat by Pulse Oximetry 98 01/01/17 23:25 - General General appearance: alert, in no apparent distress - Head Head exam: Present: atraumatic, normocephalic - Eye Eye exam: Present: normal appearance, PERRL, EOMI - ENT ENT exam: Present: normal oropharynx, mucous membranes moist, TM's normal bilaterally, normal external ear exam - Neck Neck exam: Present: full ROM, trachea midline. Absent: tenderness - Chest Chest inspection: Present: symmetric chest wall rise. Absent: tenderness - Respiratory Respiratory exam: Present: normal lung sounds bilaterally. Absent: respiratory distress - Cardiovascular Cardiovascular exam: Present: regular rate, normal rhythm, normal heart sounds. Absent: murmur - Abdominal Exam Abdominal exam: Present: soft, normal bowel sounds. Absent: distention, tenderness - Extremities Exam Extremities exam: Present: full ROM, other (+1 edema bilateral LE). Absent: tenderness - Back Exam Back exam: Present: full ROM. Absent: tenderness - Neurological Exam Neurological exam: Present: alert, oriented X3, other (Patient has intermittent stuttering consistent with her dx of Multiple Sclerosis.) - Psychiatric Psychiatric exam: Present: normal affect, normal mood - Skin Skin exam: Present: warm, dry, intact, normal color Course - Consultations Consultation #1: Hospitalist will admit patient Time: 00:45 Results - Labs CBC & BMP: 01/01/17 23:09 01/01/17 23:09 Lab Results: I have reviewed the patients labs Labs: Laboratory Tests 01/01/17 23:09 WBC 9.4 RBC 4.74 Hgb 11.9 L Hct 36.6 MCV 77.2 L MCH 25 L Plt Count 191 Laboratory Tests 01/01/17 01/01/17 01/01/17 23:09 23:09 23:09 INR 1.0 PT Patient/Control Mix 10.5 D-Dimer, Quantitative 0.7 Sodium 141 Potassium 4.0 Chloride 105 Carbon Dioxide 29 BUN 21 H Creatinine 0.70 BUN/Creatinine Ratio 30.00 H Glucose 109 H Magnesium Globulin 3.8 H Albumin/Globulin Ratio 0.9 L Lipase Urine pH Ur Specific [place] Urine Protein Urine Blood Urine Urobilinogen Urine RBC Urine WBC Ur Squamous Epith Cells Urine Bacteria Urine Mucus 01/01/17 01/01/17 23:09 23:09 INR PT Patient/Control Mix D-Dimer, Quantitative Sodium Potassium Chloride Carbon Dioxide BUN Creatinine BUN/Creatinine Ratio Glucose Magnesium 1.7 L Globulin Albumin/Globulin Ratio Lipase 191.0 Urine pH 5.0 Ur Specific [place] 1.019 Urine Protein 30 Urine Blood Small Urine Urobilinogen < 2.0 H Urine RBC 2 Urine WBC 1 Ur Squamous Epith Cells Few Urine Bacteria Occasional Urine Mucus Occasional Laboratory Tests 01/01/17 23:09 B-Natriuretic Peptide 38 - Diagnostic Findings Procedure: Chest x-ray: image reviewed by me (Negative), CT: image reviewed by me, report reviewed by me (CT head negative) Disposition Clinical Impression: Chest pain, Uncontrolled hypertension, Multiple sclerosis Case discussed with: patient, patient's family Disposition: Still a Patient Condition: Stable Time of Disposition: 00:46
[2017-01-01] MEDS ORDERED: MORPHINE 2 MG/1 ML SYRINGE ONE (23:31)
[2017-01-01] MEDS ORDERED: hydrALAZINE 20 MG/1 ML VIAL ONE (23:31)
[2017-01-01] MEDS ORDERED: ONDANSETRON 4 MG/2 ML VIAL ONE (23:31)
[2017-01-01] MEDS ORDERED: NITROGLYCERIN 2% OINT 1 INCH/GM PACK TOP ONE (23:31)
[2017-01-01] MEDS ORDERED: ASPIRIN 325 MG TABLET ONE (23:32)
[2017-01-01] MEDS ORDERED: ALUM/MAG/SIMETH/LIDO VISC 1:1 30 ML BOTTLE PO ONE (23:32)
[2017-01-01 23:38] LABS: PT Patient Result 10.5 SECS
[2017-01-01 23:54] LABS: Apearance,Urine Slightly Hazy (Clear); Bacteria,Urine Occasional /HPF (Few); Bilirubin,Urine Negative (Negative); Blood, Urine Small mg/dL (Negative); Glucose,Urine (UA) Negative (Negative); Ketones,Urine Negative (Negative); Mucus,Urine Occasional /LPF (Occasional); Nitrite,Urine Negative (Negative); Protein,Urine 30 MG/DL; RBC,Urine 2 /HPF (0-4); Squamous Epithelial Cell,Urine Few /HPF (0-10); Urine Color Yellow (Yellow); Urine Specific Gravity 1.019 (1.001-1.035); Urine Urobilinogen < 2.0 EU/DL (0.2-1.0); WBC,Urine 1 /HPF (0-6)
[2017-01-01 23:56] LABS: Alanine Aminotransferase 16 U/L (13-56); Albumin 3.7 G/DL (3.4-5.0); Alkaline Phosphatase 100 U/L (45-117); Aspartate Amino Transferase 7 U/L (0-37); Bilirubin,Total < 0.39 MG/DL (0.2-1.0); Blood Urea Nitrogen 21 MG/DL (7-18); Glucose 109 MG/DL (74-106); Magnesium 1.7 MG/DL (1.8-2.4); Osmolality,Calculated 284.3 MOS/KG (273-304); Sodium 141 MMOL/L (136-145); Total Protein 7.5 G/DL (6.4-8.3)
[2017-01-02] MEDS ORDERED: MAGNESIUM SULF RIDER 2 GM in PREMIX 1 EACH IV STA (00:20)
[2017-01-02] MEDS ORDERED: MAGNESIUM SULF RIDER 50 ML IV ONE (00:24)
[2017-01-02] MEDS ORDERED: ONDANSETRON 4 MG/2 ML VIAL IV PRN (01:35)
[2017-01-02] MEDS ORDERED: ACETAMINOPHEN 325 MG TABLET PO PRN (01:35)
[2017-01-02] MEDS ORDERED: NUEDEXTA PO PRN (01:41)
--- NOTE | 2017-01-02 01:54 | Hospitalist History & Physical ---
<Marzena Vee - Last Filed: 01/02/17 01:44> Assessment and Plan - Time spent with patient Time spent with patient: Greater than 30 minutes (1) Chest pain Status: Acute Assessment and plan: Admit to hospitalist services. Monitored bed. Work up in ED was negative for any acute cardiac process. BP was significantly elevated in ED at 246/122. Likely related to eleavted BP and demand. ASA, nitroglycerin, morphine, GI cocktail, and zofran given in ED. Continue serial troponins and EKGs ordered in ED. Continue with ASA 81 mg PO daily. O2 per unit protocol. Check CBC, BMP, mag, BNP, TSH/Free T4, HA1C, and Lipid panel in am. Control BP. Cardiac diet. Current Visit: Yes (2) HTN (hypertension) Status: Chronic Assessment and plan: Initial BP in the ED was 246/122. Hydralazine and nitroglycerin were given in ED. Continue patient's home BP meds. Hydralazine 10 mg IV Q6 hours for BP >150/90. Continue to monitor. Current Visit: Yes (3) Hypomagnesemia Status: Acute Assessment and plan: Magnesium in ED was 1.7. Magnesium 2 gm IV given in ED. Recheck mag level in am. 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 She takes a monthly infusion of Tysabri which is not due again until the end of this month. Continue home dose of dextromethorphan/quinidine 20-10 mg PO BID PRN. Continue Keppra 500 mg PO BID. Current Visit: Yes (5) DVT prophylaxis Status: Acute Assessment and plan: Lovenox 40 mg SQ daily. Current Visit: Yes History of Present Illness Chief complaint: chest pain History of present illness: Ms. Bird is a 61 year old female with a past medical history of HTN, SC and MS who presented to the ED tonight with complaints of intermittent left-sided chest pain x 2 days that radiated down her left arm. Pain is described as sharp , is brought on by activity, and is relieved after 5-10 minutes of rest. She reports having three such episodes of pain over the last 2 days with the last one today that also had associated shortness of breath, dizziness, and diaphoresis prompting her visit to the ED. She denies associated nausea and vomiting. Evaluation in the ED, which included CXR, troponin, and EKG were negative for any acute coronary syndrome. However, upon arrival, her BP was severely elevated at 246/122. She was treated with an aspirin, nitroglycerin, morphine, a GI cocktail, and zofran. Additionally, her magnesium was low at 1.7 , and she was given Magnesium 2 gm IV. Currently, she is awake, alert and oriented x 3 and is not in any pain. BP has also decreased with SBP in the 160s. Hospitalist services were consulted, and the patient will be admitted to observation for further evaluation and treatment. Home Medications Medication Instructions Recorded Confirmed Type RX: busPIRone [Buspar] 5 mg PO BID tablet 06/15/16 01/01/17 Rx RX: levETIRAcetam TAB [Keppra Tab] 500 mg PO BID tablet 06/15/16 01/01/17 Rx Cholecalciferol (Vitamin D3) 5,000 unit PO Q7DAY 01/01/17 01/01/17 History [Vitamin D3] Dextromethorph/Quinidine 20-10 1 capsule PO BID PRN 01/01/17 01/01/17 History [Nuedexta] Ferrous Sulfate Tab [Feosol 325 mg PO TID 01/01/17 01/01/17 History Original Tab] HYDROcodone/ACETAMIN 5-325 [[place] 1 tablet PO Q6H PRN 01/01/17 01/01/17 History 5-325] Natalizumab [Tysabri] 300 mg IV DIRECTED 01/01/17 01/01/17 History RX: Gabapentin 300 mg PO TID 01/01/17 01/01/17 History RX: Labetalol Tab [Trandate Tab] 200 mg PO DAILY 01/01/17 01/01/17 History RX: Losartan [Cozaar] 100 mg PO BEDTIME 01/01/17 01/01/17 History RX: Omeprazole 20 mg PO DAILY 01/01/17 01/01/17 History Zolpidem Tartrate [Ambien] 10 mg PO BEDTIME 01/01/17 01/01/17 History Allergies Allergy/AdvReac Type Severity Reaction Status Date / Time No Known Allergies Allergy Verified 01/01/17 22:41 Medical,Surgical,& Family Hx - Medical History Cardio: History of: CAD, Hypertension, SC Neurology: History of: Multiple Sclerosis (11/2016) Endocrine: History of: Dyslipidemia Respiratory: No history of: Asthma, COPD Gastrointestinal: History of: GERD Musculoskeletal: History of: Musculoskeletal Problems (MS) Hematology: History of: Anemia Other: No history of: Cancer - Surgical History Cardiac Surgeries: Patient Denies: Cardiac Catheterization, Cardiac Surgery Neurologic Surgeries: Surgical HX of: Neurologic Surgery (Brain sx for MS and to remove a benign tumor. ) Reproductive Surgeries: Surgical HX of;: Section, Tubal Ligation Patient denies;: Genitourinary Surgery - Family History Family History: Reports;: Family Diabetes (mother), Family Hypertension - Social History Smoking Status: Never smoker Have you smoked in the last 12 months: No Frequency of Alcohol Use: None Type of Drug Use: None Marital Status: Lives With:: Spouse Functional capacity: uses cane/walker 12 point system: reviewed and no additional remarkable complaints except as stated - Constitutional Constitutional: Absent: chills, fatigue, fever(s), lethargy, malaise, weakness - EENT Eyes: Absent: blurry vision, diplopia, loss of vision Ears: Absent: decreased hearing, ear discharge Nose, mouth and throat: Absent: headache(s), nasal congestion, sore throat - Cardiovascular Cardiovascular: Present: chest pain with activity, dyspnea on exertion, edema. Absent: orthopnea, palpitations - Respiratory Respiratory: Present: dyspnea on exertion. Absent: wheezing - Gastrointestinal Gastrointestinal: Present: heartburn. Absent: abdominal pain, constipation, diarrhea, nausea, vomiting - Genitourinary Genitourinary: Absent: dysuria, urinary frequency - Musculoskeletal Musculoskeletal: Absent: arthralgias, back pain, joint swelling, muscle weakness , myalgias - Neurological Neurological: Present: dizziness. Absent: confusion, numbness, paresthesias - Psychiatric Psychiatric: Present: depression. Absent: anxiety - Endocrine Endocrine: Absent: cold intolerance, polydipsia, polyphagia, polyuria - Hematologic/Lymphatic Hematologic/Lymphatic: Absent: easy bleeding, easy bruising Exam - Constitutional Vitals: Period Temp Pulse Resp BP Sys/Griffin Pulse Ox Last 24 Hr 98.2 F-98.2 F 87-87 20-20 246-246/122-122 98-98 Exam: Constitutional System: Afebrile. Awake, alert and oriented. No distress. No tremulousness. Head: Normocephalic, atraumatic. Ears, Nose and Throat System: No pain or tenderness. No epistaxis or discharge Eyes System: Pupils equal, round, and reactive. Extraocular muscles intact. Neck: Supple, without adenopathy, No jugular venous distention. No thyromegaly, neck mass, or prior surgery apparent. Respiratory System: Chest clear to auscultation. Cardiovascular System: Heart with regular rate and rhythm. Systolic murmur present. GI System: Abdomen soft, nontender. Normo active bowel sounds present. Musculoskeletal System: BLE pedal edema present; non-pitting. Full distal pulses. Normal capillary refill. Neurological System: Some slurring of speech; intermittent stuttering; consistent with diagnosis of MS. Difficulty forming words and thoughts. Psychiatric System: Conversation is rational Results - Labs CBC & BMP: 01/01/17 23:09 01/01/17 23:09 Lab Results: I have reviewed the past 24 hour labs - Diagnostic Findings Procedure: Chest x-ray: report reviewed by me (pending) <Lm Isaac - Last Filed: 01/02/17 07:46> History of Present Illness History of present illness: Ms. Bird is a 61 year old female I saw and examined the patient in conjunction with nurse practitioner Vijay Zuluaga. As above she presented with 2 day history of intermittent chest pain. She said it occurs at rest but seems worse if she gets up or moves around. She had accelerated hypertension in the ER which has been treated and improved. On exam lungs are clear heart is regular rhythm no murmurs she has 1 + edema. Agree with chest pain rule out workup as initiated in emergency room and by nurse practitioner. There is an exertional component to her chest pain which does raise concern that it could indeed be truly cardiac. Exam - Constitutional Vitals: Period Temp Pulse Resp BP Sys/Griffin Pulse Ox Last 24 Hr 97.3 F-98.2 F 78-99 18-20 130-246/63-122 96-99 Results - Labs CBC & BMP: 01/02/17 07:04 01/01/17 23:09
[2017-01-02] MEDS ORDERED: hydrALAZINE 20 MG/1 ML VIAL IV PRN (02:10)
[2017-01-02] MEDS ORDERED: NITROGLYCERIN SL 0.4 MG TABLET SL PRN (02:33)
--- NOTE | 2017-01-02 05:55 | EKG Report ---
Stationary ECG Study [facility] ER Test Date: 01/01/2017 10:37:01 PM Pat Name: MIRIAM OTT Department: Room: 419 Gender: F Invasive Cardiovascular Technologist: Lola : 1955 Requested by: Nathan Lemus Order Number: [id number] Reading MD: KASSIE ROBLEDO Intervals [place] Rate: 73 P: 48 VA: 142 QRS: -12 QRSD: 94 T: 43 QT: 386 QTc: 412 Interpretive Statements SINUS RHYTHM POSSIBLE LEFT ATRIAL ENLARGEMENT Electronically Signed On 01-02-17 14:00:12 CDT by KASSIE ROBLEDO [email or web address]
--- NOTE | 2017-01-02 05:58 | CT Report ---
Exam: CT scan of brain without contrast Date: 01/01/2017 Indication: Headache and elevated blood pressure Comparison: 06/12/2016 Patient's classification: Emergency department Technical: Images were obtained from the skull base to the vertex without the use of intravenous contrast. Dose reduction was performed with decreasing kv and mA and automated exposure Total DLP: 1073.1 mGy*cm Findings: The study was initially reviewed by [facility]. There is an area of cystic encephalomalacia in the left parietal lobe this area measures approximately 3.1 cm extending towards the vertex region. The brainstem cerebellum are otherwise unremarkable. The ventricles reveal no acute findings. Hyperostosis frontalis interna changes are present. Previous craniotomy defect in the high vertex posteriorly. Impression: 1. No acute hemorrhage, infarction or mass effect clearly seen 2. Previous craniotomy defect in the left parietal calvarium posteriorly 3. Cystic encephalomalacia in the left posterior parietal lobe If additional imaging is deemed necessary MRI with and without gadolinium and contrast enhancement may be beneficial PROCEDURE INTERPRETED AT [facility] DEPARTMENT OF RADIOLOGY Final Report Signed by: Dr. Frantz Hernandez
--- NOTE | 2017-01-02 06:25 | EKG Report ---
Stationary ECG Study [facility] Test Date: 01/02/2017 5:30:21 AM Pat Name: MIRIAM OTT Department: Room: 419 Gender: F Technology Lead: AMBAR : 1955 Requested by: Marzena Grimaldo Order Number: [id number] Reading MD: KASSIE ROBLEDO Intervals [place] Rate: 70 P: 58 IA: 148 QRS: -17 QRSD: 98 T: 18 QT: 423 QTc: 444 Interpretive Statements SINUS RHYTHM Electronically Signed On 01-02-17 14:03:10 CDT by KASSIE ROBLEDO [email or web address]
--- NOTE | 2017-01-02 06:31 | XRay Report ---
Exam: XR chest 1V portable Date: 01/01/2017 11:06 PM Indication: Chest pain Comparison: None Technical: AP Findings: Mild cardiomegaly present. ASVD is present. External cardiac leads are present. Bra clips are also present. Mild interstitial edema. No obvious effusions. Mediastinum is intact. Impression: Cardiomegaly with mild underlying interstitial edema PROCEDURE INTERPRETED AT [facility] DEPARTMENT OF RADIOLOGY Final Report Signed by: Dr. Frantz Hernandez
[2017-01-02 07:18] LABS: Basophils % 0.3 % (0.0-0.8); Eosinophils # 0.2 10*3/uL (0.0-0.87); Eosinophils % 2.6 % (0.00-10.9); Hematocrit 33.6 VOL% (35.7-47.0); Hemoglobin 10.7 GM/DL (12.0-16.0); Immature Granulocytes % 0.4 %; Immature Granulocytes Absolute 0.03 #; Lymphocytes % 41.1 % (21.3-54.2); Mean Corpuscular HGB Conc 31.8 GM/DL (32-36); Mean Corpuscular Hemoglobin 25 PG (27-34); Mean Corpuscular Volume 77.2 FL (87-102); Mean Platelet Volume 11.8 FL (9.6-12.0); Monocytes # 0.7 10*3/uL (0.11-0.8); Monocytes % 10.1 % (1.7-12.7); NRBC # 0.02 10*3/uL; Neutrophils # 3.3 10*3/uL (1.4-7.4); Neutrophils % 45.5 % (38.7-73.9); Platelet Count 167 T/CUMM (130-400); Red Blood Count 4.35 MC/CUMM (3.8-5.5); Red Cell Distribution Width 15.4 % (9.3-17.3); White Blood Count 7.3 T/CUMM (4-12)
--- NOTE | 2017-01-02 07:36 | EKG Report ---
Stationary ECG Study [facility] Test Date: 01/02/2017 7:35:23 AM Pat Name: MIRIAM OTT Department: Room: 419 Gender: F Principal Security Architect: RIC : 1955 Requested by: Marzena Grimaldo Order Number: [id number] Reading MD: KASSIE ROBLEDO Intervals [place] Rate: 68 P: 69 MA: 148 QRS: 57 QRSD: 101 T: 35 QT: 422 QTc: 439 Interpretive Statements SINUS RHYTHM Electronically Signed On 01-02-17 14:06:54 CDT by KASSIE ROBLEDO [email or web address]
[2017-01-02 07:55] LABS: Calcium 9.4 MG/DL (8.5-10.1); Magnesium 2.1 MG/DL (1.8-2.4); Osmolality,Calculated 283.3 MOS/KG (273-304); Potassium 4.1 MMOL/L (3.5-5.1); Risk Ratio 3.46; Thyroid Stimulating Hormone 2.4 uIU/ml (0.358-3.74); VLDL CHOLESTEROL 15.4 MG/DL
[2017-01-02] MEDS ORDERED: ENOXAPARIN 40 MG/0.4 ML SYRINGE SUBCUT SCH (09:00)
[2017-01-02] MEDS: FERROUS SULFATE 325 MG TABLET PO SCH ×3 (09:25→21:31)
[2017-01-02] MEDS: LABETALOL 200 MG TABLET PO SCH (09:25)
[2017-01-02] MEDS: busPIRone 5 MG TABLET PO SCH ×2 (09:25→21:33)
[2017-01-02] MEDS: levETIRAcetam 500 MG TABLET PO SCH ×2 (09:25→21:33)
[2017-01-02] MEDS: GABAPENTIN 300 MG CAPSULE PO SCH ×3 (09:25→21:33)
[2017-01-02] MEDS: ASPIRIN EC 81 MG TABLET PO SCH (09:25)
[2017-01-02] MEDS: PANTOPRAZOLE 40 MG TABLET PO SCH (09:26)
--- NOTE | 2017-01-02 11:21 | Discharge Summary ---
Discharge Plan - Discharge Medications No Action busPIRone [Buspar] 5 mg PO BID tablet Dextromethorph/Quinidine 20-10 [Nuedexta] 1 capsule PO BID PRN PRN Reason: Agitation Cholecalciferol (Vitamin D3) [Vitamin D3] 5,000 unit PO Q7DAY Zolpidem Tartrate [Ambien] 10 mg PO BEDTIME Omeprazole 20 mg PO DAILY HYDROcodone/ACETAMIN 5-325 [[place] 5-325] 1 tablet PO Q6H PRN PRN Reason: Pain Labetalol Tab [Trandate Tab] 200 mg PO DAILY Losartan [Cozaar] 100 mg PO BEDTIME Gabapentin 300 mg PO TID levETIRAcetam TAB [Keppra Tab] 500 mg PO BID tablet Ferrous Sulfate Tab [Feosol Original Tab] 325 mg PO TID Natalizumab [Tysabri] 300 mg IV DIRECTED - Follow Up or Referral - Forms/Instructions Exam - Constitutional Vitals: Period Temp Pulse Resp BP Sys/Griffin Pulse Ox Last 24 Hr 97.3 F-98.2 F 65-99 18-20 130-246/63-122 93-99 Discharge Results Procedures and tests throughout hospitalization: Pending Orders 01/02/17 11:13 Troponin,CKMB & Ck Total Q6H 01/02/17 17:13 Troponin,CKMB & Ck Total Q6H Labs on day of discharge: Labs from last 24 hours 01/02/17 01/02/17 01/02/17 07:04 07:04 07:04 WBC RBC Hgb Hct MCV MCH MCHC RDW Plt Count MPV Neut % (Auto) Lymph % (Auto) [place] % (Auto) Eos % (Auto) Baso % (Auto) Neut # (Auto) Lymph # (Auto) [place] # (Auto) Eos # (Auto) Baso # (Auto) Immature Gran % Nucleated RBC % Immature Gran # Nucleated RBCs # Immature Plt Fraction INR PT Patient/Control Mix D-Dimer, Quantitative Sodium Potassium Chloride Carbon Dioxide Anion Gap BUN Creatinine GFR Calculation BUN/Creatinine Ratio Glucose Hemoglobin A1c 7.0 H Calculated Osmolality Calcium Magnesium Total Bilirubin AST ALT Alkaline Phosphatase Troponin I < 0.015 B-Natriuretic Peptide Total Protein Albumin Globulin Albumin/Globulin Ratio Triglycerides Cholesterol LDL Cholesterol VLDL Cholesterol HDL Cholesterol Heart Disease Risk Ratio Lipase Free T4 1.18 TSH 3rd Generation Urine Color Urine Appearance Urine pH Ur Specific [place] Urine Protein Urine Glucose (UA) Urine Ketones Urine Blood Urine Nitrate Urine Bilirubin Urine Urobilinogen Urine Leukocytes Urine RBC Urine WBC Ur Squamous Epith Cells Urine Bacteria Urine Mucus Ur Culture Indicated? 01/02/17 01/02/17 01/01/17 07:04 07:03 23:09 WBC 7.3 RBC 4.35 Hgb 10.7 L Hct 33.6 L MCV 77.2 L MCH 25 L MCHC 31.8 L RDW 15.4 Plt Count 167 MPV 11.8 Neut % (Auto) 45.5 Lymph % (Auto) 41.1 [place] % (Auto) 10.1 Eos % (Auto) 2.6 Baso % (Auto) 0.3 Neut # (Auto) 3.3 Lymph # (Auto) 3.0 [place] # (Auto) 0.7 Eos # (Auto) 0.2 Baso # (Auto) 0.0 Immature Gran % 0.4 Nucleated RBC % 0.3 Immature Gran # 0.03 Nucleated RBCs # 0.02 Immature Plt Fraction 0.0 INR PT Patient/Control Mix D-Dimer, Quantitative Sodium 141 Potassium 4.1 Chloride 106 Carbon Dioxide 31 Anion Gap 8.1 BUN 17 Creatinine 0.60 GFR Calculation 155 BUN/Creatinine Ratio 28.00 H Glucose 122 H Hemoglobin A1c Calculated Osmolality 283.3 Calcium 9.4 Magnesium 2.1 1.7 L Total Bilirubin AST ALT Alkaline Phosphatase Troponin I B-Natriuretic Peptide Total Protein Albumin Globulin Albumin/Globulin Ratio Triglycerides 77 Cholesterol 173 LDL Cholesterol 111.0 VLDL Cholesterol 15.4 HDL Cholesterol 50 Heart Disease Risk Ratio 3.46 Lipase 191.0 Free T4 TSH 3rd Generation 2.400 Urine Color Urine Appearance Urine pH Ur Specific [place] Urine Protein Urine Glucose (UA) Urine Ketones Urine Blood Urine Nitrate Urine Bilirubin Urine Urobilinogen Urine Leukocytes Urine RBC Urine WBC Ur Squamous Epith Cells Urine Bacteria Urine Mucus Ur Culture Indicated? 01/01/17 01/01/17 01/01/17 23:09 23:09 23:09 WBC RBC Hgb Hct MCV MCH MCHC RDW Plt Count MPV Neut % (Auto) Lymph % (Auto) [place] % (Auto) Eos % (Auto) Baso % (Auto) Neut # (Auto) Lymph # (Auto) [place] # (Auto) Eos # (Auto) Baso # (Auto) Immature Gran % Nucleated RBC % Immature Gran # Nucleated RBCs # Immature Plt Fraction INR 1.0 PT Patient/Control Mix 10.5 D-Dimer, Quantitative Sodium Potassium Chloride Carbon Dioxide Anion Gap BUN Creatinine GFR Calculation BUN/Creatinine Ratio Glucose Hemoglobin A1c Calculated Osmolality Calcium Magnesium Total Bilirubin AST ALT Alkaline Phosphatase Troponin I < 0.015 B-Natriuretic Peptide Total Protein Albumin Globulin Albumin/Globulin Ratio Triglycerides Cholesterol LDL Cholesterol VLDL Cholesterol HDL Cholesterol Heart Disease Risk Ratio Lipase Free T4 TSH 3rd Generation Urine Color Yellow Urine Appearance Slightly hazy Urine pH 5.0 Ur Specific [place] 1.019 Urine Protein 30 Urine Glucose (UA) Negative Urine Ketones Negative Urine Blood Small Urine Nitrate Negative Urine Bilirubin Negative Urine Urobilinogen < 2.0 H Urine Leukocytes Negative Urine RBC 2 Urine WBC 1 Ur Squamous Epith Cells Few Urine Bacteria Occasional Urine Mucus Occasional Ur Culture Indicated? Not indicated 01/01/17 01/01/17 01/01/17 23:09 23:09 23:09 WBC 9.4 RBC 4.74 Hgb 11.9 L Hct 36.6 MCV 77.2 L MCH 25 L MCHC 32.5 RDW 15.2 Plt Count 191 MPV 12.0 Neut % (Auto) 46.4 Lymph % (Auto) 42.2 [place] % (Auto) 7.6 Eos % (Auto) 2.9 Baso % (Auto) 0.4 Neut # (Auto) 4.4 Lymph # (Auto) 4.0 [place] # (Auto) 0.7 Eos # (Auto) 0.3 Baso # (Auto) 0.0 Immature Gran % 0.5 Nucleated RBC % 0.5 Immature Gran # 0.05 Nucleated RBCs # 0.05 Immature Plt Fraction 0.0 INR PT Patient/Control Mix D-Dimer, Quantitative Sodium 141 Potassium 4.0 Chloride 105 Carbon Dioxide 29 Anion Gap 11.0 BUN 21 H Creatinine 0.70 GFR Calculation 142 BUN/Creatinine Ratio 30.00 H Glucose 109 H Hemoglobin A1c Calculated Osmolality 284.3 Calcium 10.0 Magnesium Total Bilirubin < 0.39 AST 7 ALT 16 Alkaline Phosphatase 100 Troponin I B-Natriuretic Peptide 38 Total Protein 7.5 Albumin 3.7 Globulin 3.8 H Albumin/Globulin Ratio 0.9 L Triglycerides Cholesterol LDL Cholesterol VLDL Cholesterol HDL Cholesterol Heart Disease Risk Ratio Lipase Free T4 TSH 3rd Generation Urine Color Urine Appearance Urine pH Ur Specific [place] Urine Protein Urine Glucose (UA) Urine Ketones Urine Blood Urine Nitrate Urine Bilirubin Urine Urobilinogen Urine Leukocytes Urine RBC Urine WBC Ur Squamous Epith Cells Urine Bacteria Urine Mucus Ur Culture Indicated? 01/01/17 23:09 WBC RBC Hgb Hct MCV MCH MCHC RDW Plt Count MPV Neut % (Auto) Lymph % (Auto) [place] % (Auto) Eos % (Auto) Baso % (Auto) Neut # (Auto) Lymph # (Auto) [place] # (Auto) Eos # (Auto) Baso # (Auto) Immature Gran % Nucleated RBC % Immature Gran # Nucleated RBCs # Immature Plt Fraction INR PT Patient/Control Mix D-Dimer, Quantitative 0.7 Sodium Potassium Chloride Carbon Dioxide Anion Gap BUN Creatinine GFR Calculation BUN/Creatinine Ratio Glucose Hemoglobin A1c Calculated Osmolality Calcium Magnesium Total Bilirubin AST ALT Alkaline Phosphatase Troponin I B-Natriuretic Peptide Total Protein Albumin Globulin Albumin/Globulin Ratio Triglycerides Cholesterol LDL Cholesterol VLDL Cholesterol HDL Cholesterol Heart Disease Risk Ratio Lipase Free T4 TSH 3rd Generation Urine Color Urine Appearance Urine pH Ur Specific [place] Urine Protein Urine Glucose (UA) Urine Ketones Urine Blood Urine Nitrate Urine Bilirubin Urine Urobilinogen Urine Leukocytes Urine RBC Urine WBC Ur Squamous Epith Cells Urine Bacteria Urine Mucus Ur Culture Indicated? DS: Provider Date of admission: 01/02/17 01:35 Primary care physician: . No PCP Attending physician on admission: Lm Isaac MD Consults: 01/02/17 08:26 Consult to Physician [CONS] Routine Comment: Consulting Provider: Cardiology - [facility] When should Consulting Provider be notified: Now Discharging clinician: Ksenia Kent MD
[2017-01-02 12:53] LABS: Troponin I Only < 0.015 NG/ML (0.00-0.045)
--- NOTE | 2017-01-02 14:01 | Cardiology Consult Note ---
<Kerri Monsalve E - Last Filed: 01/02/17 14:30> Assessment and Plan - Time spent with patient Time spent with patient: Greater than 30 minutes (due to assessment, plan, and documentation) (1) Chest pain Status: Acute Assessment and plan: See plan of care listed below. Current Visit: Yes (2) HTN (hypertension) Status: Chronic Assessment and plan: See plan of care listed below. Current Visit: Yes (3) Hypomagnesemia Status: Acute Assessment and plan: See plan of care listed below. Current Visit: Yes (4) Multiple sclerosis Status: Chronic Assessment and plan: See plan of care listed below. Current Visit: Yes (5) Dyslipidemia Status: Chronic Assessment and plan: See plan of care listed below. 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 Bird is a 61 y/o BF with a history of hypertension, multiple sclerosis, dyslipidemia and remote OR. She has risk factors significant for: Age, sedentary lifestyle, obesity, hypertension, dyslipidemia. She tells me that she had a mild heart attack 10-15 years ago but does not recall ever undergoing a stress test or heart catheterization. She was diagnosed with multiple sclerosis in May 2016 and underwent brain tumor removal at [facility] in [place] due to her multiple sclerosis. She walks with a cane. She presented to the emergency room on 01/01/2017 with complaints of intermittent left-sided chest pain ongoing for the past 2 weeks. She states this has been sharp in nature and last usually less than 5 minutes. She reports that this occurs more with exertion and usually improves with rest. She describes it as being sharp in quality and has also noticed radiation into her left arm. She reports dyspnea on exertion for the past week. She also has associated symptoms of nausea, occasional palpitations, dizziness, headaches, and experienced diaphoresis yesterday evening. Upon arrival to the emergency room her initial blood pressure was 246/122. Her daughter is in the room upon exam and reports that she had 3 doctors visits last week and each visit her blood pressure was normal. She has ruled out for OR. Her cardiac biomarkers have been negative and her EKG has been unremarkable. Her creatinine is 0.6. Potassium 4.1. Magnesium 2.1. Lipid panel revealed triglycerides 77, cholesterol 173, LDL 111, HDL 50. Her home medications have been resumed and she has not required any PRN hydralazine today. Her daughter reports that she takes her medications appropriately and as scheduled. ASSESSMENT/PLAN: 1. CHEST PAIN: Ruled out for OR but with symptoms suspicious for angina. Will further discuss with Dr. Edward further cardiac evaluation including possible LHC, inpatient versus outpatient stress testing. 2. HYPERTENSION: Much better controlled. Her home medications have been continued and have not required adjustment. She was given nitroglycerin and IV hydralazine in the ER upon admission. Will continue to monitor and adjust accordingly. 3. HYPOMAGNESEMIA: 1.7 upon arrival. She is on the replacement protocol. 4. MULTIPLE SCLEROSIS: She was diagnosed with multiple sclerosis in May 2016 and underwent brain tumor removal (reportedly benign) at [facility] in [place] due to her multiple sclerosis. She takes a monthly infusion of Tysabri which is not due again until the end of this month. 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 5. DYSLYPIDEMIA: Lipid panel revealed triglycerides 77, cholesterol 173, LDL 111, HDL 50. CC: Ksenia Kent MD - Home Medications and Allergies Home Medications: Home Medications Medication Instructions Recorded Confirmed Type busPIRone [Buspar] 5 mg PO BID tablet 06/15/16 01/01/17 Rx levETIRAcetam TAB [Keppra Tab] 500 mg PO BID tablet 06/15/16 01/01/17 Rx Cholecalciferol (Vitamin D3) 5,000 unit PO Q7DAY 01/01/17 01/01/17 History [Vitamin D3] Dextromethorph/Quinidine 20-10 1 capsule PO BID PRN 01/01/17 01/01/17 History [Nuedexta] Ferrous Sulfate Tab [Feosol 325 mg PO TID 01/01/17 01/01/17 History Original Tab] Gabapentin 300 mg PO TID 01/01/17 01/01/17 History HYDROcodone/ACETAMIN 5-325 [[place] 1 tablet PO Q6H PRN 01/01/17 01/01/17 History 5-325] Labetalol Tab [Trandate Tab] 200 mg PO DAILY 01/01/17 01/01/17 History Losartan [Cozaar] 100 mg PO BEDTIME 01/01/17 01/01/17 History Natalizumab [Tysabri] 300 mg IV DIRECTED 01/01/17 01/01/17 History Omeprazole 20 mg PO DAILY 01/01/17 01/01/17 History Zolpidem Tartrate [Ambien] 10 mg PO BEDTIME 01/01/17 01/01/17 History Allergies/Adverse Reactions: Allergies Allergy/AdvReac Type Severity Reaction Status Date / Time No Known Allergies Allergy Verified 01/01/17 22:41 Review of systems: - Constitutional: Present: fatigue, headache(s), As per HPI. Absent: anorexia, chills, daytime sleepiness, excessive sweating, fever(s), frequent falls, increased appetite, lethargy, malaise, night sweats, stops breathing during sleep, weakness, weight gain, weight loss. - EENT Eyes: Present: As per HPI. Absent: blurry vision, diplopia, loss of vision Ears: Present: As per HPI. Absent: decreased hearing, ear discharge, ear pain Nose, mouth and throat: Present: As per HPI. Absent: dysphagia, epistaxis, headache(s), hoarseness, lip swelling, nasal congestion, neck mass, neck pain, sinus pressure, sore throat, throat swelling, tongue swelling, vertigo - Cardiovascular: Present: chest pain with activity, dyspnea on exertion, edema , palpitations, diaphoresis, radiating jaw, neck or arm pain, as per HPI. Absent: chest pain at rest, dyspnea, claudication, lightheadedness, orthopnea, PND - Respiratory: Present:dyspnea on exertion, as per HPI. Absent: dyspnea, cough , hemoptysis, wheezing, snoring, pain on inspiration - Gastrointestinal: Present: As per HPI. Absent: abdominal pain, bloating, change in bowel habits, constipation, diarrhea, heartburn, hematemesis, hematochezia, loose stools, melena, nausea, vomiting - Genitourinary: Present: As per HPI. Absent: difficulty urinating, dysuria, flank pain, hematuria, nocturia, urinary frequency, urinary incontinence - Musculoskeletal: Present: As per HPI. Absent: arthralgias, back pain, joint swelling, limited range of motion, muscle cramps, muscle weakness, myalgias - Neurological: Present: dizziness, abnormal speech (chronic), As per HPI. Absent: behavioral changes, confusion, convulsions, disequilibrium, focal weakness, frequent falls, headache(s), memory loss, numbness, paresthesias, radicular pain, syncope, tremor(s) - Psychiatric: Present: As per HPI. Absent: anxiety, confusion, depression, panic attacks - Endocrine: Present: fatigue, As per HPI. Absent: cold intolerance, heat intolerance, polydipsia, polyphagia - Hematologic/Lymphatic: Present: As per HPI. Absent: easy bleeding, easy bruising, lymphadenopathy Medical,Surgical,& Family Hx - Medical History Cardio: History of: CAD, Hypertension, OR Neurology: History of: Multiple Sclerosis (11/2016) Endocrine: History of: Dyslipidemia Respiratory: No history of: Asthma, COPD Gastrointestinal: History of: GERD Musculoskeletal: History of: Musculoskeletal Problems (MS) Hematology: History of: Anemia Other: No history of: Cancer - Surgical History Cardiac Surgeries: Patient Denies: Cardiac Catheterization, Cardiac Surgery Neurologic Surgeries: Surgical HX of: Neurologic Surgery (Brain sx for MS and to remove a benign tumor. ) Reproductive Surgeries: Surgical HX of;: Section, Tubal Ligation Patient denies;: Genitourinary Surgery - Family History Family History: Reports;: Family Diabetes (mother), Family Hypertension - Social History Smoking Status: Never smoker Frequency of Alcohol Use: None Type of Drug Use: None Marital Status: Lives With:: Spouse Functional capacity: uses cane/walker Physical Examination Vital Signs Temp Pulse Resp BP Pulse Ox 98.2 F 87 20 246/122 98 01/01/17 22:30 01/01/17 22:30 01/01/17 22:30 01/01/17 22:30 01/01/17 22:30 Exam: General appearance: Appears well. Pleasant and cooperative. Overweight, no acute distress. Head exam: Present: normal inspection, normocephalic, atraumatic. Absent: hematoma, laceration Eye exam: Present: EOMI. Absent: conjunctival injection, nystagmus, periorbital swelling, scleral icterus, laceration to eyelids, jaundice Pupils: Present: PERRL. Absent: constricted, dilated, fixed, irregular, unequal ENT exam: Present: normal exam, normal external ear exam, mucous membranes moist. Neck exam: Present: normal inspection, midline trachea. Absent: masses, lymphadenopathy, tenderness, thyromegaly, carotid bruit Respiratory exam: Present: clear to auscultation bilaterally. Absent: accessory muscle use, chest wall tenderness, rales, rhonchi, wheezing. Cardiovascular exam: Present: regular rate and rhythm. Absent: gallop, JVD, rubs GI/Abdominal exam: Present: normal bowel sounds, soft. Absent: distended, firm , hernia, mass, tenderness. Extremities exam: Present: Normal Gait, No Clubbing, No Cyanosis, Upper Extr. Pulses 2+, Lower Extr. Pulses 2+, Mild BLE edema. Capillary refill less than 3 seconds. Musculoskeletal: Present: No Fluid Collection, No Pain, Normal Range of Motion Back exam: Present: normal inspection. Absent: muscle spasm, vertebral tenderness Neurological exam: Present: awake, alert, oriented X3, Moves all extremities well without hemiparesis or paralysis. Grossly intact without resting or essential tremor. Mild speech impairment with occasional slurring of words. Psychiatric exam: Present: normal affect, normal mood Skin exam: Present: normal color, warm, dry, intact. Absent: cyanosis, diaphoretic, rash, urticaria Result/EKG - Labs CBC & BMP: 01/02/17 07:04 01/02/17 07:03 Lab Results: I have reviewed the past 24 hour labs Labs: Laboratory Results - last 24 hr 01/01/17 01/01/17 01/01/17 23:09 23:09 23:09 WBC RBC Hgb Hct MCV MCH MCHC RDW Plt Count MPV Neut % (Auto) Lymph % (Auto) [place] % (Auto) Eos % (Auto) Baso % (Auto) Neut # (Auto) Lymph # (Auto) [place] # (Auto) Eos # (Auto) Baso # (Auto) Immature Gran % Nucleated RBC % Immature Gran # Nucleated RBCs # Immature Plt Fraction INR PT Patient/Control Mix D-Dimer, Quantitative 0.7 Sodium 141 Potassium 4.0 Chloride 105 Carbon Dioxide 29 Anion Gap 11.0 BUN 21 H Creatinine 0.70 GFR Calculation 142 BUN/Creatinine Ratio 30.00 H Glucose 109 H Hemoglobin A1c Calculated Osmolality 284.3 Calcium 10.0 Magnesium Total Bilirubin < 0.39 AST 7 ALT 16 Alkaline Phosphatase 100 Total Creatine Kinase CK-MB (CK-2) Troponin I B-Natriuretic Peptide 38 Total Protein 7.5 Albumin 3.7 Globulin 3.8 H Albumin/Globulin Ratio 0.9 L Triglycerides Cholesterol LDL Cholesterol VLDL Cholesterol HDL Cholesterol Heart Disease Risk Ratio Lipase Free T4 TSH 3rd Generation Urine Color Urine Appearance Urine pH Ur Specific [place] Urine Protein Urine Glucose (UA) Urine Ketones Urine Blood Urine Nitrate Urine Bilirubin Urine Urobilinogen Urine Leukocytes Urine RBC Urine WBC Ur Squamous Epith Cells Urine Bacteria Urine Mucus Ur Culture Indicated? 01/01/17 01/01/17 01/01/17 23:09 23:09 23:09 WBC 9.4 RBC 4.74 Hgb 11.9 L Hct 36.6 MCV 77.2 L MCH 25 L MCHC 32.5 RDW 15.2 Plt Count 191 MPV 12.0 Neut % (Auto) 46.4 Lymph % (Auto) 42.2 [place] % (Auto) 7.6 Eos % (Auto) 2.9 Baso % (Auto) 0.4 Neut # (Auto) 4.4 Lymph # (Auto) 4.0 [place] # (Auto) 0.7 Eos # (Auto) 0.3 Baso # (Auto) 0.0 Immature Gran % 0.5 Nucleated RBC % 0.5 Immature Gran # 0.05 Nucleated RBCs # 0.05 Immature Plt Fraction 0.0 INR 1.0 PT Patient/Control Mix 10.5 D-Dimer, Quantitative Sodium Potassium Chloride Carbon Dioxide Anion Gap BUN Creatinine GFR Calculation BUN/Creatinine Ratio Glucose Hemoglobin A1c Calculated Osmolality Calcium Magnesium Total Bilirubin AST ALT Alkaline Phosphatase Total Creatine Kinase CK-MB (CK-2) Troponin I < 0.015 B-Natriuretic Peptide Total Protein Albumin Globulin Albumin/Globulin Ratio Triglycerides Cholesterol LDL Cholesterol VLDL Cholesterol HDL Cholesterol Heart Disease Risk Ratio Lipase Free T4 TSH 3rd Generation Urine Color Urine Appearance Urine pH Ur Specific [place] Urine Protein Urine Glucose (UA) Urine Ketones Urine Blood Urine Nitrate Urine Bilirubin Urine Urobilinogen Urine Leukocytes Urine RBC Urine WBC Ur Squamous Epith Cells Urine Bacteria Urine Mucus Ur Culture Indicated? 01/01/17 01/01/17 01/02/17 23:09 23:09 07:03 WBC RBC Hgb Hct MCV MCH MCHC RDW Plt Count MPV Neut % (Auto) Lymph % (Auto) [place] % (Auto) Eos % (Auto) Baso % (Auto) Neut # (Auto) Lymph # (Auto) [place] # (Auto) Eos # (Auto) Baso # (Auto) Immature Gran % Nucleated RBC % Immature Gran # Nucleated RBCs # Immature Plt Fraction INR PT Patient/Control Mix D-Dimer, Quantitative Sodium 141 Potassium 4.1 Chloride 106 Carbon Dioxide 31 Anion Gap 8.1 BUN 17 Creatinine 0.60 GFR Calculation 155 BUN/Creatinine Ratio 28.00 H Glucose 122 H Hemoglobin A1c Calculated Osmolality 283.3 Calcium 9.4 Magnesium 1.7 L 2.1 Total Bilirubin AST ALT Alkaline Phosphatase Total Creatine Kinase CK-MB (CK-2) Troponin I B-Natriuretic Peptide Total Protein Albumin Globulin Albumin/Globulin Ratio Triglycerides 77 Cholesterol 173 LDL Cholesterol 111.0 VLDL Cholesterol 15.4 HDL Cholesterol 50 Heart Disease Risk Ratio 3.46 Lipase 191.0 Free T4 TSH 3rd Generation 2.400 Urine Color Yellow Urine Appearance Slightly hazy Urine pH 5.0 Ur Specific [place] 1.019 Urine Protein 30 Urine Glucose (UA) Negative Urine Ketones Negative Urine Blood Small Urine Nitrate Negative Urine Bilirubin Negative Urine Urobilinogen < 2.0 H Urine Leukocytes Negative Urine RBC 2 Urine WBC 1 Ur Squamous Epith Cells Few Urine Bacteria Occasional Urine Mucus Occasional Ur Culture Indicated? Not indicated 01/02/17 01/02/17 01/02/17 07:04 07:04 07:04 WBC 7.3 RBC 4.35 Hgb 10.7 L Hct 33.6 L MCV 77.2 L MCH 25 L MCHC 31.8 L RDW 15.4 Plt Count 167 MPV 11.8 Neut % (Auto) 45.5 Lymph % (Auto) 41.1 [place] % (Auto) 10.1 Eos % (Auto) 2.6 Baso % (Auto) 0.3 Neut # (Auto) 3.3 Lymph # (Auto) 3.0 [place] # (Auto) 0.7 Eos # (Auto) 0.2 Baso # (Auto) 0.0 Immature Gran % 0.4 Nucleated RBC % 0.3 Immature Gran # 0.03 Nucleated RBCs # 0.02 Immature Plt Fraction 0.0 INR PT Patient/Control Mix D-Dimer, Quantitative Sodium Potassium Chloride Carbon Dioxide Anion Gap BUN Creatinine GFR Calculation BUN/Creatinine Ratio Glucose Hemoglobin A1c 7.0 H Calculated Osmolality Calcium Magnesium Total Bilirubin AST ALT Alkaline Phosphatase Total Creatine Kinase CK-MB (CK-2) Troponin I B-Natriuretic Peptide Total Protein Albumin Globulin Albumin/Globulin Ratio Triglycerides Cholesterol LDL Cholesterol VLDL Cholesterol HDL Cholesterol Heart Disease Risk Ratio Lipase Free T4 1.18 TSH 3rd Generation Urine Color Urine Appearance Urine pH Ur Specific [place] Urine Protein Urine Glucose (UA) Urine Ketones Urine Blood Urine Nitrate Urine Bilirubin Urine Urobilinogen Urine Leukocytes Urine RBC Urine WBC Ur Squamous Epith Cells Urine Bacteria Urine Mucus Ur Culture Indicated? 01/02/17 01/02/17 07:04 11:43 WBC RBC Hgb Hct MCV MCH MCHC RDW Plt Count MPV Neut % (Auto) Lymph % (Auto) [place] % (Auto) Eos % (Auto) Baso % (Auto) Neut # (Auto) Lymph # (Auto) [place] # (Auto) Eos # (Auto) Baso # (Auto) Immature Gran % Nucleated RBC % Immature Gran # Nucleated RBCs # Immature Plt Fraction INR PT Patient/Control Mix D-Dimer, Quantitative Sodium Potassium Chloride Carbon Dioxide Anion Gap BUN Creatinine GFR Calculation BUN/Creatinine Ratio Glucose Hemoglobin A1c Calculated Osmolality Calcium Magnesium Total Bilirubin AST ALT Alkaline Phosphatase Total Creatine Kinase 66 CK-MB (CK-2) < 1.0 Troponin I < 0.015 < 0.015 B-Natriuretic Peptide Total Protein Albumin Globulin Albumin/Globulin Ratio Triglycerides Cholesterol LDL Cholesterol VLDL Cholesterol HDL Cholesterol Heart Disease Risk Ratio Lipase Free T4 TSH 3rd Generation Urine Color Urine Appearance Urine pH Ur Specific [place] Urine Protein Urine Glucose (UA) Urine Ketones Urine Blood Urine Nitrate Urine Bilirubin Urine Urobilinogen Urine Leukocytes Urine RBC Urine WBC Ur Squamous Epith Cells Urine Bacteria Urine Mucus Ur Culture Indicated? - EKG EKG results: interpreted by me, sinus rhythm <Anuj Edward - Last Filed: 01/02/17 19:40> Assessment and Plan - Time spent with patient Time spent with patient: Greater than 30 minutes (1) Angina of effort Status: Acute Assessment and plan: Her exertional left chest pain greater than left arm which goes away with rest sounds like effort angina. Plan/records: Give a dose of Lovenox, milligram per kilogram Continue aspirin Treat hypertension Left heart cath and possible PTCA or stent. Left heart cath and possible PTCA or stent were discussed with the patient. The risk of the procedure include but are not limited to a small risk of injury to the vessel, abnormal heart rhythm, stroke, heart attack, need for emergent surgery, contrast reaction, restenosis, infection, or . The patient voices understanding, agrees with the plan, and desires to proceed with the heart catheterization. Thank you for allowing me to participate in this patient's care Current Visit: Yes (2) Hypomagnesemia Status: Acute Current Visit: Yes (3) Dyslipidemia Status: Chronic Current Visit: Yes (4) HTN (hypertension) Status: Chronic Current Visit: Yes (5) Multiple sclerosis Status: Chronic Current Visit: Yes (6) Brain mass Status: Acute Current Visit: No (7) Cerebrovascular accident Status: Acute Current Visit: No (8) Primary neoplasm of brain Status: Acute Current Visit: No History of Present Illness - Consult Narrative History of present illness: Ms. Bird is a 61 year old female CC: Ksenia Kent MD Physical Examination Vital Signs Temp Pulse Resp BP Pulse Ox 98.2 F 87 20 246/122 98 01/01/17 22:30 01/01/17 22:30 01/01/17 22:30 01/01/17 22:30 01/01/17 22:30 Result/EKG - Labs CBC & BMP: 01/02/17 07:04 01/02/17 07:03 Labs: Laboratory Results - last 24 hr 01/01/17 01/01/17 01/01/17 23:09 23:09 23:09 WBC RBC Hgb Hct MCV MCH MCHC RDW Plt Count MPV Neut % (Auto) Lymph % (Auto) [place] % (Auto) Eos % (Auto) Baso % (Auto) Neut # (Auto) Lymph # (Auto) [place] # (Auto) Eos # (Auto) Baso # (Auto) Immature Gran % Nucleated RBC % Immature Gran # Nucleated RBCs # Immature Plt Fraction INR PT Patient/Control Mix D-Dimer, Quantitative 0.7 Sodium 141 Potassium 4.0 Chloride 105 Carbon Dioxide 29 Anion Gap 11.0 BUN 21 H Creatinine 0.70 GFR Calculation 142 BUN/Creatinine Ratio 30.00 H Glucose 109 H Hemoglobin A1c Calculated Osmolality 284.3 Calcium 10.0 Magnesium Total Bilirubin < 0.39 AST 7 ALT 16 Alkaline Phosphatase 100 Total Creatine Kinase CK-MB (CK-2) Troponin I B-Natriuretic Peptide 38 Total Protein 7.5 Albumin 3.7 Globulin 3.8 H Albumin/Globulin Ratio 0.9 L Triglycerides Cholesterol LDL Cholesterol VLDL Cholesterol HDL Cholesterol Heart Disease Risk Ratio Lipase Free T4 TSH 3rd Generation Urine Color Urine Appearance Urine pH Ur Specific [place] Urine Protein Urine Glucose (UA) Urine Ketones Urine Blood Urine Nitrate Urine Bilirubin Urine Urobilinogen Urine Leukocytes Urine RBC Urine WBC Ur Squamous Epith Cells Urine Bacteria Urine Mucus Ur Culture Indicated? 01/01/17 01/01/17 01/01/17 23:09 23:09 23:09 WBC 9.4 RBC 4.74 Hgb 11.9 L Hct 36.6 MCV 77.2 L MCH 25 L MCHC 32.5 RDW 15.2 Plt Count 191 MPV 12.0 Neut % (Auto) 46.4 Lymph % (Auto) 42.2 [place] % (Auto) 7.6 Eos % (Auto) 2.9 Baso % (Auto) 0.4 Neut # (Auto) 4.4 Lymph # (Auto) 4.0 [place] # (Auto) 0.7 Eos # (Auto) 0.3 Baso # (Auto) 0.0 Immature Gran % 0.5 Nucleated RBC % 0.5 Immature Gran # 0.05 Nucleated RBCs # 0.05 Immature Plt Fraction 0.0 INR 1.0 PT Patient/Control Mix 10.5 D-Dimer, Quantitative Sodium Potassium Chloride Carbon Dioxide Anion Gap BUN Creatinine GFR Calculation BUN/Creatinine Ratio Glucose Hemoglobin A1c Calculated Osmolality Calcium Magnesium Total Bilirubin AST ALT Alkaline Phosphatase Total Creatine Kinase CK-MB (CK-2) Troponin I < 0.015 B-Natriuretic Peptide Total Protein Albumin Globulin Albumin/Globulin Ratio Triglycerides Cholesterol LDL Cholesterol VLDL Cholesterol HDL Cholesterol Heart Disease Risk Ratio Lipase Free T4 TSH 3rd Generation Urine Color Urine Appearance Urine pH Ur Specific [place] Urine Protein Urine Glucose (UA) Urine Ketones Urine Blood Urine Nitrate Urine Bilirubin Urine Urobilinogen Urine Leukocytes Urine RBC Urine WBC Ur Squamous Epith Cells Urine Bacteria Urine Mucus Ur Culture Indicated? 01/01/17 01/01/17 01/02/17 23:09 23:09 07:03 WBC RBC Hgb Hct MCV MCH MCHC RDW Plt Count MPV Neut % (Auto) Lymph % (Auto) [place] % (Auto) Eos % (Auto) Baso % (Auto) Neut # (Auto) Lymph # (Auto) [place] # (Auto) Eos # (Auto) Baso # (Auto) Immature Gran % Nucleated RBC % Immature Gran # Nucleated RBCs # Immature Plt Fraction INR PT Patient/Control Mix D-Dimer, Quantitative Sodium 141 Potassium 4.1 Chloride 106 Carbon Dioxide 31 Anion Gap 8.1 BUN 17 Creatinine 0.60 GFR Calculation 155 BUN/Creatinine Ratio 28.00 H Glucose 122 H Hemoglobin A1c Calculated Osmolality 283.3 Calcium 9.4 Magnesium 1.7 L 2.1 Total Bilirubin AST ALT Alkaline Phosphatase Total Creatine Kinase CK-MB (CK-2) Troponin I B-Natriuretic Peptide Total Protein Albumin Globulin Albumin/Globulin Ratio Triglycerides 77 Cholesterol 173 LDL Cholesterol 111.0 VLDL Cholesterol 15.4 HDL Cholesterol 50 Heart Disease Risk Ratio 3.46 Lipase 191.0 Free T4 TSH 3rd Generation 2.400 Urine Color Yellow Urine Appearance Slightly hazy Urine pH 5.0 Ur Specific [place] 1.019 Urine Protein 30 Urine Glucose (UA) Negative Urine Ketones Negative Urine Blood Small Urine Nitrate Negative Urine Bilirubin Negative Urine Urobilinogen < 2.0 H Urine Leukocytes Negative Urine RBC 2 Urine WBC 1 Ur Squamous Epith Cells Few Urine Bacteria Occasional Urine Mucus Occasional Ur Culture Indicated? Not indicated 01/02/17 01/02/17 01/02/17 07:04 07:04 07:04 WBC 7.3 RBC 4.35 Hgb 10.7 L Hct 33.6 L MCV 77.2 L MCH 25 L MCHC 31.8 L RDW 15.4 Plt Count 167 MPV 11.8 Neut % (Auto) 45.5 Lymph % (Auto) 41.1 [place] % (Auto) 10.1 Eos % (Auto) 2.6 Baso % (Auto) 0.3 Neut # (Auto) 3.3 Lymph # (Auto) 3.0 [place] # (Auto) 0.7 Eos # (Auto) 0.2 Baso # (Auto) 0.0 Immature Gran % 0.4 Nucleated RBC % 0.3 Immature Gran # 0.03 Nucleated RBCs # 0.02 Immature Plt Fraction 0.0 INR PT Patient/Control Mix D-Dimer, Quantitative Sodium Potassium Chloride Carbon Dioxide Anion Gap BUN Creatinine GFR Calculation BUN/Creatinine Ratio Glucose Hemoglobin A1c 7.0 H Calculated Osmolality Calcium Magnesium Total Bilirubin AST ALT Alkaline Phosphatase Total Creatine Kinase CK-MB (CK-2) Troponin I B-Natriuretic Peptide Total Protein Albumin Globulin Albumin/Globulin Ratio Triglycerides Cholesterol LDL Cholesterol VLDL Cholesterol HDL Cholesterol Heart Disease Risk Ratio Lipase Free T4 1.18 TSH 3rd Generation Urine Color Urine Appearance Urine pH Ur Specific [place] Urine Protein Urine Glucose (UA) Urine Ketones Urine Blood Urine Nitrate Urine Bilirubin Urine Urobilinogen Urine Leukocytes Urine RBC Urine WBC Ur Squamous Epith Cells Urine Bacteria Urine Mucus Ur Culture Indicated? 01/02/17 01/02/17 01/02/17 07:04 11:43 16:36 WBC RBC Hgb Hct MCV MCH MCHC RDW Plt Count MPV Neut % (Auto) Lymph % (Auto) [place] % (Auto) Eos % (Auto) Baso % (Auto) Neut # (Auto) Lymph # (Auto) [place] # (Auto) Eos # (Auto) Baso # (Auto) Immature Gran % Nucleated RBC % Immature Gran # Nucleated RBCs # Immature Plt Fraction INR PT Patient/Control Mix D-Dimer, Quantitative Sodium Potassium Chloride Carbon Dioxide Anion Gap BUN Creatinine GFR Calculation BUN/Creatinine Ratio Glucose Hemoglobin A1c Calculated Osmolality Calcium Magnesium Total Bilirubin AST ALT Alkaline Phosphatase Total Creatine Kinase 66 64 CK-MB (CK-2) < 1.0 < 1.0 Troponin I < 0.015 < 0.015 < 0.015 B-Natriuretic Peptide Total Protein Albumin Globulin Albumin/Globulin Ratio Triglycerides Cholesterol LDL Cholesterol VLDL Cholesterol HDL Cholesterol Heart Disease Risk Ratio Lipase Free T4 TSH 3rd Generation Urine Color Urine Appearance Urine pH Ur Specific [place] Urine Protein Urine Glucose (UA) Urine Ketones Urine Blood Urine Nitrate Urine Bilirubin Urine Urobilinogen Urine Leukocytes Urine RBC Urine WBC Ur Squamous Epith Cells Urine Bacteria Urine Mucus Ur Culture Indicated?
[2017-01-02] MEDS ORDERED: MAGNESIUM SULF RIDER 2 GM in PREMIX 1 EACH IV PRN (16:39)
[2017-01-02] MEDS ORDERED: POTASSIUM CHLORIDE RIDER 10 MEQ in PREMIX 1 EACH IV PRN (16:39)
--- NOTE | 2017-01-02 17:04 | ECHO Report ---
Inga Bird Exam Date: 01/02/2017 10:30 Referring Physician: Technologist: ruchi Vega ARDMS, RVT Age: 61 Ht (in): 68 Wt (lb): 281 Gender: F Exam Location: [facility] Echo Indications: Essential (primary) hypertension, Chest pain, unspecified, Hypomagnesemia, DVT, Multiple sclerosis BP: 130 / 63 HR: 65 Rhythm: Sinus Technical Quality: Good IMPRESSIONS Moderate left ventricular hypertrophy. Left ventricular ejection fraction is estimated at 65 %. Mildly increased right ventricular size. The right atrium is mildly enlarged. Moderately increased left atrial size. Trace mitral valve regurgitation. Some av sclerosis . Tricuspid regurgitation velocities suggest a PAP of 48 mmHg. Trace tricuspid valve regurgitation. MEASUREMENTS (Male / Female) Normal Values 2D ECHO LV Diastolic Diameter PLAX 4.6 cm 4.2 - 5.9 / 3.9 - 5.3 cm LV Systolic Diameter PLAX 2.7 cm LV Fractional Shortening PLAX 41.7 % IVS Diastolic Thickness 1.2 cm 0.6 - 1.0 / 0.6 - 0.9 cm LVPW Diastolic Thickness 1.2 cm 0.6 - 1.0 / 0.6 - 0.9 cm RV Internal Dim ED PLAX 3.2 cm Aortic Root Diameter 3.1 cm LA Systolic Diameter LX 4.0 cm 3.0 - 4.0 / 2.7 - 3.8 cm DOPPLER TR Peak Velocity 307.0 cm/s TR Peak Gradient 37.7 mmHg FINDINGS Left Ventricle Normal left ventricular cavity size. Moderate left ventricular hypertrophy. Left ventricular ejection fraction is estimated at 65 %. Right Ventricle Mildly increased right ventricular size. Right Atrium The right atrium is mildly enlarged. Left Atrium Moderately increased left atrial size. Mitral Valve Morphologically normal mitral valve. Trace mitral valve regurgitation. Aortic Valve Morphologically normal aortic valve without significant sclerosis or stenosis. some av sclerosis . There is no aortic regurgitation. Tricuspid Valve Morphologically normal tricuspid valve. Trace tricuspid valve regurgitation. Tricuspid regurgitation velocities suggest a PAP of 48 mmHg. Pulmonic Valve Morphologically normal pulmonic valve without significant stenosis. There is no pulmonic regurgitation. Pericardium Normal pericardium without effusion. Aorta Normal ascending aorta dimension. Anuj Edward MD (Electronically Signed) Final Date: 02 January 2017 17:02
[2017-01-02] MEDS ORDERED: ENOXAPARIN 60 MG/0.6 ML SYRINGE SUBCUT ONE (17:30)
[2017-01-02 17:41] LABS: Troponin I Only < 0.015 NG/ML (0.00-0.045)
[2017-01-02] MEDS: LOSARTAN 50 MG TABLET PO SCH (21:33)
[2017-01-02] MEDS ORDERED: SODIUM CHLORIDE 0.9% 1,000 ML IV SCH (22:00)
[2017-01-02] MEDS ORDERED: ALPRAZolam 0.25 MG TABLET PO PRN (22:47)
[2017-01-03 04:22] LABS: Basophils % 0.3 % (0.0-0.8); Eosinophils # 0.2 10*3/uL (0.0-0.87); Eosinophils % 2.3 % (0.00-10.9); Hematocrit 32.3 VOL% (35.7-47.0); Hemoglobin 10.3 GM/DL (12.0-16.0); Immature Granulocytes % 0.4 %; Immature Granulocytes Absolute 0.03 #; Lymphocytes # 3.5 10*3/uL (1.4-4.0); Lymphocytes % 46.8 % (21.3-54.2); Mean Corpuscular HGB Conc 31.9 GM/DL (32-36); Mean Corpuscular Hemoglobin 25 PG (27-34); Mean Platelet Volume 12.2 FL (9.6-12.0); Monocytes # 0.6 10*3/uL (0.11-0.8); Monocytes % 7.9 % (1.7-12.7); NRBC # 0.04 10*3/uL; Neutrophils # 3.2 10*3/uL (1.4-7.4); Neutrophils % 42.3 % (38.7-73.9); Platelet Count 167 T/CUMM (130-400); Red Blood Count 4.14 MC/CUMM (3.8-5.5); Red Cell Distribution Width 15.5 % (9.3-17.3); White Blood Count 7.5 T/CUMM (4-12)
[2017-01-03 04:52] LABS: Calcium 8.6 MG/DL (8.5-10.1); Magnesium 1.7 MG/DL (1.8-2.4); Osmolality,Calculated 284.1 MOS/KG (273-304); Potassium 3.8 MMOL/L (3.5-5.1)
[2017-01-03] MEDS ORDERED: diphenhydrAMINE CAP 25 MG CAPSULE PO ONE (07:00)
--- NOTE | 2017-01-03 07:43 | History and Physical Update ---
Sedation H&P Update - History and Physical H&P was reviewed, the patient examined and there: are no changes in the patients condition since last H&P was completed. - Dictation Physical: refer to H&P completed by admitting physician - Physical Exam Mental Status: alert and oriented Heart: regular rate and rhythm Lung: clear to auscultation Abdomen: within normal limits Vitals: within normal limits - Sedation Plan for Sedation: minimal Patient Consent: Procedure disscussed with patient and patinet has consented., Risks and benefits were discussed with patient,including infection,, bleeding, injury to surrounding structures, seizure, temporary nerve, Patient understands and accepts potential risks/benefits and agrees to, proceed. ASA Class: II Airway Assessment: Class II: Soft palate, uvula, fauces visible
[2017-01-03] MEDS ORDERED: HEPARIN 5,000 UNIT/1 ML VIAL IV ONE (07:49)
[2017-01-03] MEDS ORDERED: MEPERIDINE 25 MG/1 ML VIAL IV ONE (07:49)
[2017-01-03] MEDS ORDERED: TIROFIBAN 5,000 MCG/100 ML PREMIX IV ONE (07:49)
[2017-01-03] MEDS ORDERED: MIDAZOLAM 2 MG/2 ML VIAL IV ONE (07:49)
[2017-01-03] MEDS ORDERED: TICAGRELOR 90 MG TABLET ONE (08:37)
[2017-01-03] MEDS ORDERED: LIDOCAINE 1% 20 ML VIAL ONE (08:51)
--- NOTE | 2017-01-03 09:12 | Cardiology Operative Report ---
Date of Procedure:: 01/03/17 Post-op diagnosis: same (Progressive anginal chest pain, limiting, multiple risk factors for coronary disease) Procedure: Date of procedure: 01/03/17 Procedure Preformed: Left heart cath Coronary angiography Left ventriculography Angiogram of the right femoral artery PTCA of the septal retirement consultant of the LAD Loading with Brilinta, 180 mg p.o. Angio-Seal of the right femoral artery-successful Surgeon / Physician: Anuj Edward Machine Maintenance: Carlito Mera Post-op diagnosis: same (Progressive anginal chest pain, limiting, multiple risk factors for coronary disease) procedure: The patient was prepped and draped in usual manner. Entered the right femoral artery via the Seldinger technique. I used a sheath and then used a JL4 and engaged left coronary. Multiple views were taken. I then exchanged for a JR4. Multiple views of the right coronary were taken. I then exchanged for an angled pigtail. I crossed the valve. Left ventricular end-diastolic pressures measured. Left ventriculography was done. Left ventricle pullback was done. The catheters were then removed from the patient. Please see the data sheets for the details of catheters used. Intervention: Cardiovascular surgery was available for any complications. The coronary intervention was done using a JL4 guiding catheter and a 0.014 run through wire. I did a PTCA of the ostium of the septal retirement consultant with a 2.25 x 20 mm NC Trek. See the data sheets for the pressures and times. The patient has some midline chest pain during the intervention, but she says it was different from her index symptoms. Afterwards, there was a good result. Angiogram of the right femoral artery was done, either at that time or as a follow-through from the aortogram/left ventriculogram. Closure device was used -see data sheets. patient was transferred to her room on telemetry in satisfactory condition. Please see the cath report for details of the pressures and times. Complications: none Hemodynamic data: LVEDP was 20 mmHg. Angiographic data: The left main coronary was large and had minimal luminal irregularities. The left anterior descending artery was large. There is one major diagonal. 1 or 2 loose large septal perforators. The first septal retirement consultant and 80% ostial /proximal stenosis. The left circumflex system was moderate to large. It was 1 major obtuse marginal and 1 posterior lateral branches. The right coronary artery was large in size, dominant vessel with the PDA and post lateral branch. WOODY left ventriculography revealed normal global/regional left ventricular systolic function. Overall ejection fraction was at least 55%. There is no significant mitral regurgitation. After the intervention, There is a less than 20% residual. NATASHA grade III flow. Angiogram of the right femoral artery revealed the puncture site to be in a large vessel, above the bifurcation. It was suitable for a clocure device. Impression: Significant disease involving the ostium of the septal retirement consultant-80%, NATASHA grade III flow Mild disease in other vessels Moderate elevation of LVEDP, 20 mmHg Aggrastat bolus and infusion-for PCI Status post successful PTCA of the ostium of septal retirement consultant of the LAD-2.25 x 20 mm NC Trek, post intervention, less than 20% residual, NATASHA grade III flow Brilinta 180 mg p.o. Angio-Seal right femoral artery-successful Plan/recommendations: Based on this study, the patient had significant disease and septal retirement consultant which very well could be causing her anginal sounding pain. However, when I intervene, cause midline aching or discomfort which was different from her index pain. Maybe her index pain is GI or muscle skeletal. I Treat for both of those possibilities. However intervened upon a lesion which may be causing some ischemia. Her heart rate slightly elevated. I will add a low-dose of atenolol to slow her heart rate. She will be on some gabapentin, Tylenol, and tramadol. The patient will have risk factors optimized. The patient will be on antiplatelet medications to include aspirin indefinitely . She will be on cilostazol 50 mg p.o. twice daily to reduce her chance of restenosis. Follow-up will be scheduled. Addenda: I saw the patient post-cath. the groin puncture site and distal pulse are stable. vital signs are stable and the patient will be observed closely overnight. Specimens: none sent Estimated blood loss: minimal Condition: stable Anesthesia: local, conscious sedation Disposition: floor Anesthesia: local, minimal conscious sedation Surgeon / Physician: Anuj Edward Machine Maintenance: other Estimated blood loss: minimal Specimens: none sent Condition: stable Disposition: floor
[2017-01-03] MEDS ORDERED: SODIUM CHLORIDE 0.9% 1,000 ML IV SCH (09:30)
[2017-01-03] MEDS: CILOSTAZOL 50 MG TABLET PO SCH ×2 (10:25→21:11)
[2017-01-03] MEDS ORDERED: hydrALAZINE 20 MG/1 ML VIAL ONE (10:29)
[2017-01-03 11:22] LABS: Troponin I Only < 0.015 NG/ML (0.00-0.045)
--- NOTE | 2017-01-03 13:11 | EKG Report ---
Stationary ECG Study [facility] Test Date: 01/03/2017 1:10:48 PM Pat Name: MIRIAM OTT Department: Room: 270 Gender: F Product Sales Engineer: : 1955 Requested by: Kassie Edward Order Number: [id number] Reading MD: KASSIE EDWARD Intervals [place] Rate: 71 P: 53 VT: 146 QRS: -18 QRSD: 94 T: 42 QT: 427 QTc: 450 Interpretive Statements SINUS RHYTHM Electronically Signed On 01-03-17 18:44:44 CDT by KASSIE EDWARD [email or web address]
--- NOTE | 2017-01-03 13:25 | Hospitalist Progress Note ---
Assessment and Plan (1) Acute coronary syndrome Status: Acute Assessment and plan: 1)CAD with angina- s/p cath with stent to septal youth ministry director of LAD. on aggrastat per protocol. Brillinta and asa. atenolol added. 2)hyperlipiedemia 3)MS with mass- she has had this diagnosis for about 6months and has been stressed about it. she is treated with infusions monthly. I suggest she take the records from this stay to her neurologist. Current Visit: Yes (2) Multiple sclerosis Status: Chronic Current Visit: Yes (3) Dyslipidemia Status: Chronic Current Visit: Yes (4) Angina of effort Status: Acute Current Visit: Yes Hospitalist: Subjective Interval history: I have seen Mrs Irving after her heart cath and stent placement. She is feeling good and lying flat in bed per post cath instructions. No complaints. The stent was placed at the ostium of the septal youth ministry director for 80% occlusion. Exam - Constitutional Vitals: Period Temp Pulse Resp BP Sys/Griffin Pulse Ox Last 24 Hr 96.9 F-98.3 F 55-96 16-20 112-175/57-78 94-96 General appearance: no acute distress, morbidly obese - Eye Eye exam: Present: EOMI. Absent: scleral icterus - Respiratory Respiratory exam: Present: clear to auscultation bilaterally - Cardiovascular Cardiovascular exam: Present: regular rate and rhythm - GI/Abdominal GI/Abdominal exam: Present: normal bowel sounds, soft. Absent: tenderness - Extremities Exam Extremities exam: Absent: edema Results - Labs CBC & BMP: 01/03/17 03:41 01/03/17 03:41 Lab Results: I have reviewed the past 24 hour labs Quality Measures - VTE Contraindication to Pharmacological VTE Prophylaxis: High Risk of Bleeding
[2017-01-03] MEDS: busPIRone 5 MG TABLET PO SCH ×2 (13:40→21:12)
[2017-01-03] MEDS: ACETAMINOPHEN 325 MG TABLET PO SCH ×2 (13:41→21:11)
[2017-01-03] MEDS: GABAPENTIN 300 MG CAPSULE PO SCH ×3 (13:41→21:12)
[2017-01-03] MEDS: FERROUS SULFATE 325 MG TABLET PO SCH ×3 (13:41→21:11)
[2017-01-03] MEDS: traMADol 50 MG TABLET PO SCH ×2 (13:42→21:12)
[2017-01-03] MEDS: PANTOPRAZOLE 40 MG TABLET PO SCH (13:57)
[2017-01-03] MEDS: levETIRAcetam 500 MG TABLET PO SCH ×2 (13:57→21:12)
[2017-01-03] MEDS: ASPIRIN EC 81 MG TABLET PO SCH (13:57)
[2017-01-03] MEDS: LABETALOL 200 MG TABLET PO SCH ×2 (20:03→21:12)
[2017-01-03] MEDS ORDERED: ROSUVASTATIN 10 MG TABLET PO SCH (21:00)
[2017-01-03] MEDS: LOSARTAN 50 MG TABLET PO SCH (21:11)
[2017-01-03] MEDS: TICAGRELOR 90 MG TABLET PO SCH (21:12)
[2017-01-04 05:44] LABS: Basophils % 0.3 % (0.0-0.8); Eosinophils # 0.3 10*3/uL (0.0-0.87); Eosinophils % 2.9 % (0.00-10.9); Hematocrit 33.5 VOL% (35.7-47.0); Hemoglobin 10.9 GM/DL (12.0-16.0); Immature Granulocytes % 0.5 %; Immature Granulocytes Absolute 0.04 #; Lymphocytes # 2.6 10*3/uL (1.4-4.0); Mean Corpuscular HGB Conc 32.5 GM/DL (32-36); Mean Corpuscular Hemoglobin 25 PG (27-34); Mean Corpuscular Volume 77.7 FL (87-102); Mean Platelet Volume 12.4 FL (9.6-12.0); Monocytes # 0.9 10*3/uL (0.11-0.8); Monocytes % 9.9 % (1.7-12.7); NRBC # 0.03 10*3/uL; Neutrophils # 4.9 10*3/uL (1.4-7.4); Neutrophils % 56.4 % (38.7-73.9); Platelet Count 182 T/CUMM (130-400); Red Blood Count 4.31 MC/CUMM (3.8-5.5); Red Cell Distribution Width 15.4 % (9.3-17.3); White Blood Count 8.8 T/CUMM (4-12)
[2017-01-04 06:25] LABS: Calcium 8.8 MG/DL (8.5-10.1); Magnesium 1.9 MG/DL (1.8-2.4); Osmolality,Calculated 279.3 MOS/KG (273-304); Potassium 4.4 MMOL/L (3.5-5.1)
[2017-01-04 06:36] LABS: Troponin I Only 0.044 NG/ML (0.00-0.045)
[2017-01-04] MEDS: PANTOPRAZOLE 40 MG TABLET PO SCH (08:36)
[2017-01-04] MEDS: LABETALOL 200 MG TABLET PO SCH (08:36)
[2017-01-04] MEDS: busPIRone 5 MG TABLET PO SCH (08:36)
[2017-01-04] MEDS: FERROUS SULFATE 325 MG TABLET PO SCH (08:36)
[2017-01-04] MEDS: traMADol 50 MG TABLET PO SCH (08:37)
[2017-01-04] MEDS: TICAGRELOR 90 MG TABLET PO SCH (08:37)
[2017-01-04] MEDS: CILOSTAZOL 50 MG TABLET PO SCH (08:37)
[2017-01-04] MEDS: levETIRAcetam 500 MG TABLET PO SCH (08:37)
[2017-01-04] MEDS: ACETAMINOPHEN 325 MG TABLET PO SCH (08:37)
[2017-01-04] MEDS: GABAPENTIN 300 MG CAPSULE PO SCH (08:37)
[2017-01-04] MEDS: ASPIRIN EC 81 MG TABLET PO SCH (08:38)
--- NOTE | 2017-01-04 08:41 | EKG Report ---
Stationary ECG Study [facility] Test Date: 01/04/2017 7:11:54 AM Pat Name: MIRIAM OTT Department: Room: 270 Gender: F Housing Assistant: JANET : 1955 Requested by: Kassie Edward Order Number: [id number] Reading MD: KASSIE EDWARD Intervals [place] Rate: 74 P: 53 AR: 151 QRS: -27 QRSD: 90 T: 44 QT: 412 QTc: 439 Interpretive Statements SINUS RHYTHM LOW QRS VOLTAGE IN PRECORDIAL LEADS POSSIBLE ANTERIOR MYOCARDIAL INFARCTION, OF INDETERMINATE AGE INTERPRETATION BASED ON A DEFAULT AGE OF 40 YEARS Electronically Signed On 01-04-17 10:14:21 CDT by KASSIE EDWARD [email or web address]
--- NOTE | 2017-01-04 09:47 | Cardiology Progress Note ---
Assessment and Plan - Time spent with patient Time spent with patient: Less than 30 minutes (1) Acute coronary syndrome Status: Acute Assessment and plan: See plan of care listed below. Current Visit: Yes (2) HTN (hypertension) Status: Chronic Assessment and plan: See plan of care listed below. Current Visit: Yes (3) Hypomagnesemia Status: Acute Assessment and plan: See plan of care listed below. Current Visit: Yes (4) Multiple sclerosis Status: Chronic Assessment and plan: See plan of care listed below. Current Visit: Yes (5) Dyslipidemia Status: Chronic Assessment and plan: See plan of care listed below. Current Visit: Yes (6) Coronary artery disease Status: Acute Assessment and plan: See plan of care listed below. Current Visit: Yes Cardiology - PN: Subj Interval history: Catholic Priest: new to Dr. Edward SUMMARY: Ms. Irving is a 61 y/o BF who presented to the emergency room on 2016 with complaints of intermittent left-sided chest pain ongoing for 2 weeks. She described exertional left chest pain with left arm pain that goes away with rest sounding like exertional angina. Blood pressure was initially 246/ 122. She was taken for left heart catheterization on 01/03/2017 and underwent PTCA to the ostial septal electrical timing device calibrator with good result. She is noted to have an ejection fraction of 55%. 2016: Ms. Irving is seen on the telemetry unit this morning. She has no complaints other than some back pain from lying flat all night. Her Fermin catheter has been removed this morning. Her right groin dressing was removed and she has no bleeding, hematoma, or bruit at site. Distal pulses are present and palpable bilaterally. She has some mild tenderness at the cath site but no ecchymosis present. I have discussed with her at length groin precautions including: Monitoring for signs or symptoms of infection, no stooping, bending, or straining, no heavy lifting for the next week, no driving for the next 2 days, monitoring for any bleeding. She voices understanding. Her daughter is at the bedside for this discussion. I discussed her new medication regimen with her and reiterated the importance of continuing current dual antiplatelet therapy and not missing any doses. Her labs are stable this morning with potassium 4.4, creatinine 0.6, magnesium 1.9, troponin 0 0.044. H& H is 10.9 and 33.5. Okay from cardiology standpoint to discharge home today. She will need to follow-up with Dr. Edward in 4-6 weeks with CBC, BMP with mag, and EKG. ASSESSMENT/PLAN: 1. ACUTE CORONARY SYNDROME: She presented with symptoms suspicious for angina and was taken for left heart cath and underwent PTCA. She will continue dual antiplatelet therapy with aspirin and Brilinta. She will also continue with beta-melvin, statin, and ARB. 2. HYPERTENSION: Blood pressures remain mildly elevated at times but are overall much better controlled than when she first came in. Continue with current therapy. She will need to monitor her blood pressure at home and bring her log to her follow-up appointment with Dr. Edward in for 6 weeks. 3. HYPOMAGNESEMIA: 1.7 upon arrival. She is on the replacement protocol. 4. MULTIPLE SCLEROSIS: She was diagnosed with multiple sclerosis in May 2016 and underwent brain tumor removal (reportedly benign) at [facility] in [place] due to her multiple sclerosis. She takes a monthly infusion of Tysabri which is not due again until the end of this month. 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 5. DYSLYPIDEMIA: Lipid panel revealed triglycerides 77, cholesterol 173, LDL 111, HDL 50. 6. CORONARY ARTERY DISEASE: Status post PTCA. Continue dual antiplatelet therapy, beta-melvin, statin, and ARB. Exam (Progress Note) - Constitutional Vitals: Period Temp Pulse Resp BP Sys/Griffin Pulse Ox Last 24 Hr 97.8 F-98.4 F 62-86 18-20 112-177/60-88 93-99 Exam: General appearance: Appears well. Pleasant and cooperative. Overweight, no acute distress. Head exam: Present: normal inspection, normocephalic, atraumatic. Absent: hematoma, laceration Eye exam: Present: EOMI. Absent: conjunctival injection, nystagmus, periorbital swelling, scleral icterus, laceration to eyelids, jaundice Pupils: Present: PERRL. Absent: constricted, dilated, fixed, irregular, unequal ENT exam: Present: normal exam, normal external ear exam, mucous membranes moist. Neck exam: Present: normal inspection, midline trachea. Absent: masses, lymphadenopathy, tenderness, thyromegaly, carotid bruit Respiratory exam: Present: clear to auscultation bilaterally. Absent: accessory muscle use, chest wall tenderness, rales, rhonchi, wheezing. Cardiovascular exam: Present: regular rate and rhythm. Absent: gallop, JVD, rubs GI/Abdominal exam: Present: normal bowel sounds, soft. Absent: distended, firm , hernia, mass, tenderness. Extremities exam: Present: Normal Gait, No Clubbing, No Cyanosis, Upper Extr. Pulses 2+, Lower Extr. Pulses 2+, Mild BLE edema. Capillary refill less than 3 seconds. Musculoskeletal: Present: No Fluid Collection, No Pain, Normal Range of Motion Back exam: Present: normal inspection. Absent: muscle spasm, vertebral tenderness Neurological exam: Present: awake, alert, oriented X3, Moves all extremities well without hemiparesis or paralysis. Grossly intact without resting or essential tremor. Mild speech impairment with occasional slurring of words. Psychiatric exam: Present: normal affect, normal mood Skin exam: Present: normal color, warm, dry, intact. Absent: cyanosis, diaphoretic, rash, urticaria Right groin: Dressing removed. No bleeding, hematoma, or bruit at site. Mild tenderness to palpation. No ecchymosis. Distal pulses present and palpable bilateral. Result/EKG - Labs CBC & BMP: 01/04/17 04:05 01/04/17 04:06 Lab Results: I have reviewed the past 24 hour labs Labs: Laboratory Results - last 24 hr 01/03/17 01/03/17 01/04/17 09:30 17:41 04:05 WBC 8.8 RBC 4.31 Hgb 10.9 L Hct 33.5 L MCV 77.7 L MCH 25 L MCHC 32.5 RDW 15.4 Plt Count 182 MPV 12.4 H Neut % (Auto) 56.4 Lymph % (Auto) 30.0 [place] % (Auto) 9.9 Eos % (Auto) 2.9 Baso % (Auto) 0.3 Neut # (Auto) 4.9 Lymph # (Auto) 2.6 [place] # (Auto) 0.9 H Eos # (Auto) 0.3 Baso # (Auto) 0.0 Immature Gran % 0.5 Nucleated RBC % 0.3 Immature Gran # 0.04 Nucleated RBCs # 0.03 Immature Plt Fraction 0.0 Sodium Potassium Chloride Carbon Dioxide Anion Gap BUN Creatinine GFR Calculation BUN/Creatinine Ratio Glucose Calculated Osmolality Calcium Magnesium Total Creatine Kinase 80 D 150 D CK-MB (CK-2) 1.1 1.9 Troponin I < 0.015 0.060 H D 01/04/17 01/04/17 04:05 04:06 WBC RBC Hgb Hct MCV MCH MCHC RDW Plt Count MPV Neut % (Auto) Lymph % (Auto) [place] % (Auto) Eos % (Auto) Baso % (Auto) Neut # (Auto) Lymph # (Auto) [place] # (Auto) Eos # (Auto) Baso # (Auto) Immature Gran % Nucleated RBC % Immature Gran # Nucleated RBCs # Immature Plt Fraction Sodium 141 Potassium 4.4 Chloride 106 Carbon Dioxide 28 Anion Gap 11.4 BUN 9 Creatinine 0.60 GFR Calculation 150 BUN/Creatinine Ratio 15.00 Glucose 100 Calculated Osmolality 279.3 Calcium 8.8 Magnesium 1.9 Total Creatine Kinase 119 D CK-MB (CK-2) 1.6 Troponin I 0.044 - EKG EKG results: interpreted by me, sinus rhythm Quality Measures - VTE Contraindication to Pharmacological VTE Prophylaxis: High Risk of Bleeding Specialty Discharge - Follow Up or Referrals Follow up with: Anuj Edward MD [Physician] - 01/31/17 12:40 pm (Follow up with CBC, BMP w/ Mg, and EKG. )
--- NOTE | 2017-01-04 11:35 | Discharge Summary ---
<Lulu Brown - Last Filed: 01/04/17 11:20> Hospital Course - Hospital Course Hospital Course: Ms Bird 61 y/o female, w/PMHx of Multiple Sclerosis, hypertension, NE, dyslipidemia, GERD who presents to the ED on 01/01/17 for further evaluation of c/ o chest pain that radiates to her left shoulder and arm w/ nausea and SOB. IN ED: CXR: cardiomegaly w/mild underlying intersitial edema. EKG: sinus rhythm, poss left atrial enlargement. LABS significant: Magnesium 1.7, Glucose 109, negative troponin with negative repeat troponins. Consulted cardiology: recommended and performed left hear catherization with results as: Significant disease involving the ostium of the septal hand packer/packager-80%, NATASHA grade III flow Mild disease in other vessels Moderate elevation of LVEDP, 20 mmHg Aggrastat bolus and infusion-for PCI Status post successful PTCA of the ostium of septal hand packer/packager of the LAD-2.25 x 20 mm NC Trek, post intervention, less than 20% residual, NATASHA grade III flow. right femoral artery angio-sealed and no swelling noted to site, palpable pulse, no pain with expected soreness, cardiology agrees with plan of discharge this a.m. with brilinta, ASA, and atenolol for home medications. Fermin removed patient has urinated with out difficulty this a.m. Today 01/04/17 Ms Bird seen and chart reviewed. She is stable and ready for discharge home. She will need to followup with Dr Edward in 4-6 weeks with CBC, BMP with mag, and EKG. She will need to follow up with her primary care physician. Patient medications were reconciled upon admission, and again at the time of discharge. The patient was screened for tobacco use and found to be a never smoker. The patient's medical decsion maker is [themself], and when asked, they asked to be [Full code]. Discharge Time was [33] minutes, including final examination, evaluation and planning, education, reconciliation of medications, writing prescriptions, coordinating care with adult protective caseworker, and preparing discharge documentation. - Time spent with patient Time with patient DS: Greater than 30 minutes (33 minutes for completion including examming, conferring with Cardiology SAGGER FILLER, documentation, and discussion with patient and family discharge planning) Specialty Discharge - Follow Up or Referrals Follow up with: Anuj Edward MD [Physician] - 01/31/17 12:40 pm (Follow up with CBC, BMP w/ Mg, and EKG. ) Discharge Plan - Discharge Data Disposition: Disch To Home/Self Care Condition at Discharge: Stable Discharge Diet: heart healthy, low salt diet Activity: resume usual activities as tolerated, increase activity as tolerated, no lifting (x1 week (nothing heavier than a gallon of milk)) Hygiene: may shower, keep area(s) dry Weight Bearing at Discharge: weight bear as tolerated Driving: other (no driving for next 2 -3 days) Contact your physician if you experience:: fever over 101, Difficulty voiding, Redness or swelling, Nausea/Vomiting, Shortness of breath, Bleeding - Discharge Medications New Ticagrelor [Brilinta] 90 mg PO BID #60 tablet Aspirin EC Tab 81 mg PO DAILY #100 tablet Continue busPIRone [Buspar] 5 mg PO BID tablet Dextromethorph/Quinidine 20-10 [Nuedexta] 1 capsule PO BID PRN PRN Reason: Agitation Cholecalciferol (Vitamin D3) [Vitamin D3] 5,000 unit PO Q7DAY Zolpidem Tartrate [Ambien] 10 mg PO BEDTIME Omeprazole 20 mg PO DAILY HYDROcodone/ACETAMIN 5-325 [[place]terfield 5-325] 1 tablet PO Q6H PRN PRN Reason: Pain Labetalol Tab [Trandate Tab] 200 mg PO DAILY Losartan [Cozaar] 100 mg PO BEDTIME Gabapentin 300 mg PO TID levETIRAcetam TAB [Keppra Tab] 500 mg PO BID tablet Ferrous Sulfate Tab [Feosol Original Tab] 325 mg PO TID Natalizumab [Tysabri] 300 mg IV DIRECTED - Follow Up or Referral Follow Up: Anuj Edward MD [Physician] - 01/31/17 12:40 pm (Follow up with CBC, BMP w/ Mg, and EKG. ) - Forms/Instructions Instructions: Angina (DC), Left Heart Catheterization (DC), Hypomagnesemia (DC ) Exam - Constitutional Vitals: Period Temp Pulse Resp BP Sys/Griffin Pulse Ox Last 24 Hr 97.8 F-98.4 F 62-86 18-20 112-177/60-88 93-99 General appearance: no acute distress, over weight - Head Head exam: Present: normal inspection - Eye Eye exam: Present: EOMI Pupils: Present: BILLY - Neck Neck exam: Present: normal inspection. Absent: thyromegaly - Respiratory Respiratory exam: Present: clear to auscultation bilaterally. Absent: rhonchi, stridor, wheezes - Cardiovascular Cardiovascular exam: Present: regular rate and rhythm - GI/Abdominal GI/Abdominal exam: Present: normal bowel sounds, soft. Absent: tenderness, rebound - Extremities Exam Extremities exam: Present: normal inspection, full ROM, edema (bilateral trace edema lower extremities) - Neurological Exam Neurological exam: Present: alert, oriented X3, CN II-XII intact - Psychiatric Psychiatric exam: Present: normal affect, normal mood. Absent: agitated, anxious - Skin Skin exam: Present: normal color, warm, dry Discharge Results Procedures and tests throughout hospitalization: Left Heart Catherization completed 01/03/17 need to follow up with Dr Edward as discussed Labs on day of discharge: Labs from last 24 hours 01/04/17 01/04/17 01/04/17 04:06 04:05 04:05 WBC 8.8 RBC 4.31 Hgb 10.9 L Hct 33.5 L MCV 77.7 L MCH 25 L MCHC 32.5 RDW 15.4 Plt Count 182 MPV 12.4 H Neut % (Auto) 56.4 Lymph % (Auto) 30.0 Grady % (Auto) 9.9 Eos % (Auto) 2.9 Baso % (Auto) 0.3 Neut # (Auto) 4.9 Lymph # (Auto) 2.6 Grady # (Auto) 0.9 H Eos # (Auto) 0.3 Baso # (Auto) 0.0 Immature Gran % 0.5 Nucleated RBC % 0.3 Immature Gran # 0.04 Nucleated RBCs # 0.03 Immature Plt Fraction 0.0 Sodium 141 Potassium 4.4 Chloride 106 Carbon Dioxide 28 Anion Gap 11.4 BUN 9 Creatinine 0.60 GFR Calculation 150 BUN/Creatinine Ratio 15.00 Glucose 100 Calculated Osmolality 279.3 Calcium 8.8 Magnesium 1.9 Total Creatine Kinase 119 D CK-MB (CK-2) 1.6 Troponin I 0.044 01/03/17 17:41 WBC RBC Hgb Hct MCV MCH MCHC RDW Plt Count MPV Neut % (Auto) Lymph % (Auto) Grady % (Auto) Eos % (Auto) Baso % (Auto) Neut # (Auto) Lymph # (Auto) Grady # (Auto) Eos # (Auto) Baso # (Auto) Immature Gran % Nucleated RBC % Immature Gran # Nucleated RBCs # Immature Plt Fraction Sodium Potassium Chloride Carbon Dioxide Anion Gap BUN Creatinine GFR Calculation BUN/Creatinine Ratio Glucose Calculated Osmolality Calcium Magnesium Total Creatine Kinase 150 D CK-MB (CK-2) 1.9 Troponin I 0.060 H D DS: Provider Date of admission: 01/02/17 01:35 Primary care physician: . No PCP Attending physician on admission: Lm Isaac MD Consults: 01/02/17 08:26 Consult to Physician [CONS] Routine Comment: Consulting Provider: Cardiology - [facility] When should Consulting Provider be notified: Now Person Notified: Porfirio Date Notified: 01/02/17 Time Notified: 12:23 Discharging clinician: Lulu Brown NP <Sourav Maravilla - Last Filed: 01/04/17 12:25> Diagnosis - Discharge Diagnosis (1) Acute coronary syndrome Status: Resolved
[2017-01-04 12:28] VITALS: BP 133/63
--- NOTE | 2017-01-04 14:12 | Physician Query Form ---
CLICK EDIT DOCUMENT TO SELECT QUERY ANSWER --> OK --> SIGN Nargis Rice RN Clinical Chronometer Repairer W) [phone] (f) [phone] [email or web address]: Make your selection(s) from the choices in EACH section by typing an "x" and enter comments in the comment section. Please use your independent medical judgment in providing your response. This request does not imply that any particular answer is desired or expected. CLINICAL INDICATORS: (Providers should not edit this section) Based on documentation of "BP was significantly elevated in ED at 246/122" Treated with IV Apresoline. Note: Hypertensive crises can present as hypertensive urgency or hypertensive emergency. Clarify which, if any of the following, is a more accurate diagnosis reflecting the type and acuity of the documented hypertension: TYPE: ( ) Hypertensive Urgency (X ) Hypertensive Emergency ( ) Uncontrolled chronic hypertension at baseline ( ) Other, please specify: ( ) Clinically unable to determine COMMENTS: Criteria Source - Up to Date (This topic last updated: Jun 29, 2015) HYPERTENSIVE URGENCY: Severe hypertension (usually a diastolic blood pressure above 120 mmHg) in asymptomatic patients is referred to as hypertensive urgency. There is no proven benefit from rapid reduction in blood pressure in asymptomatic patients who have no evidence of acute end-organ damage and are at little short-term risk. HYPERTENSIVE EMERGENCY: Severe hypertension (usually a diastolic blood pressure above 120 mmHg) with evidence of acute end-organ damage is defined as a hypertensive emergency. A hypertensive emergency can be life threatening and requires immediate treatment, usually with parenteral medications in a monitored setting. PLEASE ALSO DOCUMENT RESPONSE IN PROGRESS NOTES AND/OR DISCHARGE SUMMARY Use of terms such as suspected, likely, or probable (associated with a specific diagnosis that is being evaluated, monitored, or treated as if it exists) are acceptable and can be restated in the discharge summary if not ruled out. MTDD
--- NOTE | 2017-01-05 10:28 | EKG Report ---
Stationary ECG Study [facility] Test Date: 01/03/2017 9:44:06 AM Pat Name: Inga Bird Department: 4 Room: Gender: Aluminum Pourer: : 1955 Requested by: Order Number: [id number] Reading MD: KASSIE ROBLEDO Intervals [place] Rate: 66 P: 48 RI: 151 QRS: -27 QRSD: 94 T: 37 QT: 431 QTc: 444 Interpretive Statements SINUS RHYTHM MODERATE LEFT AXIS DEVIATION Electronically Signed On 01-05-17 12:22:35 CDT by KASSIE ROBLEDO [email or web address]
== END 2017-01-04 14:00 | disposition home or self-care (01) | DRG 251 ==
LOC: N.ED 22:27 → N.EDINP 22:27 → SUATTDRO 01-02 01:35 → OBSVTOIN 01-02 01:35 → N.4E 01-02 02:22 → N.TELES 01-03 12:58
PROVIDERS: ADMIT Family Medicine; ATTEND Internal Medicine
PROC: CLCCHCL (ICD-10-PCS; 2017-01-03 07:45)

== ENCOUNTER 2019-04-22 06:10 | Observation (INO) ==
[2019-04-22 07:18] LABS: Basophils % 0.5 % (0.0-0.8); Eosinophils # 0.2 10*3/uL (0.0-0.87); Eosinophils % 2.2 % (0.00-10.9); Hematocrit 37.6 VOL% (35.7-47.0); Hemoglobin 11.8 GM/DL (12.0-16.0); Immature Granulocytes % 0.4 %; Immature Granulocytes Absolute 0.03 #; Lymphocytes # 3.9 10*3/uL (1.4-4.0); Mean Corpuscular HGB Conc 31.4 GM/DL (32-36); Mean Corpuscular Volume 81.6 FL (87-102); Mean Platelet Volume 12.6 FL (9.6-12.0); NRBC # 0.02 10*3/uL; Neutrophils % 37.9 % (38.7-73.9); Platelet Count 189 T/CUMM (130-400); Red Blood Count 4.61 MC/CUMM (3.8-5.5); Red Cell Distribution Width 14.9 % (9.3-17.3); White Blood Count 7.7 T/CUMM (4-12)
[2019-04-22 07:24] LABS: INR 0.9; PT Patient Result 10.3 SECS (9.6-12.2); Partial Thromboplastin Time 29.6 SECS (20.8-36.0)
[2019-04-22 07:34] LABS: Albumin 3.8 G/DL (3.4-5.0); Bilirubin,Total 0.8 MG/DL (0.2-1.0); Calcium 9.1 MG/DL (8.5-10.1); Osmolality,Calculated 282.3 MOS/KG (273-304); Total Protein 7.4 G/DL (6.4-8.3)
[2019-04-22] MEDS ORDERED: ASPIRIN CHEW 81 MG TABLET PO STA (07:38)
[2019-04-22] MEDS ORDERED: NITROGLYCERIN SL 0.4 MG TABLET SL STA ×2 (07:38→09:08)
[2019-04-22 07:57] LABS: Eosinophils 11 % (0-10); Hypochromasia 1+; Lymphocytes 43 % (20-55); Nucleated Red Blood Cells 1 (0-5); Platelet Estimate Adequate; Segmented Neutrophils 32 % (50-85); Total Cells Counted 100
[2019-04-22] MEDS ORDERED: MAGNESIUM SULF RIDER 1 GM in PREMIX 1 EACH IV STA (09:02)
[2019-04-22] MEDS ORDERED: METOPROLOL TARTRATE 5 MG/5 ML VIAL IV STA (09:11)
[2019-04-22] MEDS ORDERED: BACLOFEN 10 MG TABLET PO PRN (11:02)
[2019-04-22] MEDS ORDERED: ACETAMINOPHEN 325 MG TABLET PO PRN (11:06)
[2019-04-22] MEDS ORDERED: BISACODYL 5 MG TABLET PO PRN (11:06)
[2019-04-22] MEDS ORDERED: MAGNESIUM HYDROXIDE SUSP 30 ML UDCUP PO PRN (11:06)
[2019-04-22] MEDS ORDERED: POTASSIUM CHLORIDE 20 MEQ TABLET PO PRN ×2 (11:06)
[2019-04-22] MEDS ORDERED: MORPHINE 4 MG/1 ML VIAL IV PRN (11:06)
[2019-04-22] MEDS ORDERED: MAGNESIUM SULF RIDER 4 GM in PREMIX 1 EACH IV PRN (11:06)
[2019-04-22] MEDS ORDERED: ALUM/MAG/SIMETH/LIDO VISC 1:1 30 ML BOTTLE PO PRN (11:06)
[2019-04-22] MEDS ORDERED: MAGNESIUM SULF RIDER 2 GM in PREMIX 1 EACH IV PRN (11:06)
[2019-04-22] MEDS ORDERED: oxyCODONE/ACETAMINOPHEN 5-325 MG TABLET PO PRN (11:06)
[2019-04-22] MEDS: FERROUS SULFATE 325 MG TABLET PO SCH ×2 (14:26→21:18)
[2019-04-22] MEDS: amLODIPine 10 MG TABLET PO SCH (14:27)
[2019-04-22] MEDS ORDERED: busPIRone 5 MG TABLET PO SCH (21:00)
[2019-04-22] MEDS ORDERED: DABIGATRAN 75 MG CAPSULE PO SCH (21:00)
[2019-04-22] MEDS ORDERED: ZALEPLON 5 MG CAPSULE PO SCH (21:00)
[2019-04-22] MEDS ORDERED: LOSARTAN 50 MG TABLET PO SCH (21:00)
[2019-04-22] MEDS: CILOSTAZOL 50 MG TABLET PO SCH (21:14)
[2019-04-22] MEDS: levETIRAcetam 500 MG TABLET PO SCH (21:15)
[2019-04-22] MEDS: GABAPENTIN 300 MG CAPSULE PO SCH (21:15)
[2019-04-22] MEDS: TICAGRELOR 90 MG TABLET PO SCH (21:15)
[2019-04-23 04:46] LABS: Basophils % 0.5 % (0.0-0.8); Eosinophils # 0.2 10*3/uL (0.0-0.87); Hemoglobin 10.3 GM/DL (12.0-16.0); Immature Granulocytes % 0.3 %; Immature Granulocytes Absolute 0.02 #; Lymphocytes # 3.2 10*3/uL (1.4-4.0); Lymphocytes % 49.9 % (21.3-54.2); Mean Corpuscular HGB Conc 32.2 GM/DL (32-36); Mean Corpuscular Volume 82.1 FL (87-102); Mean Platelet Volume 13.3 FL (9.6-12.0); NRBC # 0.02 10*3/uL; Neutrophils % 36.3 % (38.7-73.9); Platelet Count 154 T/CUMM (130-400); Red Cell Distribution Width 15.2 % (9.3-17.3); White Blood Count 6.3 T/CUMM (4-12)
[2019-04-23 05:08] LABS: Albumin 2.7 G/DL (3.4-5.0); Bilirubin,Total 0.4 MG/DL (0.2-1.0); Calcium 8.5 MG/DL (8.5-10.1); Osmolality,Calculated 280.4 MOS/KG (273-304); Risk Ratio 3.58; Total Protein 6.2 G/DL (6.4-8.3)
[2019-04-23 05:15] LABS: Eosinophils 2 % (0-10); Lymphocytes 57 % (20-55); Nucleated Red Blood Cells 1 (0-5); Segmented Neutrophils 33 % (50-85); Total Cells Counted 100
[2019-04-23 05:16] LABS: Hypochromasia 1+; Platelet Estimate Adequate
[2019-04-23 08:11] VITALS: BP 120/58
[2019-04-23] MEDS ORDERED: CETIRIZINE 10 MG TABLET PO SCH (09:00)
[2019-04-23] MEDS ORDERED: ASPIRIN EC 81 MG TABLET PO SCH (09:00)
[2019-04-23] MEDS ORDERED: LABETALOL 200 MG TABLET PO SCH (09:00)
[2019-04-23] MEDS ORDERED: PANTOPRAZOLE 40 MG TABLET PO SCH ×2 (09:00)
[2019-04-23] MEDS ORDERED: ROSUVASTATIN 10 MG TABLET PO SCH (09:00)
[2019-04-23] MEDS ORDERED: FLUTICASONE 50 MCG NASAL SPRAY 16 GM BOTTLE BOTH NARES SCH (09:00)
[2019-04-23] MEDS ORDERED: CYANOCOBALAMIN 500 MCG TABLET PO SCH (09:00)
[2019-04-23] MEDS: TICAGRELOR 90 MG TABLET PO SCH (10:06)
[2019-04-23] MEDS: amLODIPine 10 MG TABLET PO SCH (10:08)
[2019-04-23] MEDS: GABAPENTIN 300 MG CAPSULE PO SCH (10:11)
[2019-04-23] MEDS: CILOSTAZOL 50 MG TABLET PO SCH (10:15)
[2019-04-23] MEDS: FERROUS SULFATE 325 MG TABLET PO SCH (10:32)
[2019-04-23] MEDS: levETIRAcetam 500 MG TABLET PO SCH (10:47)
[2019-04-27] MEDS ORDERED: CHOLECALCIFEROL 5,000 UNIT TABLET PO SCH (11:02)
== END 2019-04-23 13:18 | disposition home or self-care (01) ==
LOC: N.EDINP 06:10 → N.ED 06:10 → N.2W 11:36
PROVIDERS: ADMIT Internal Medicine; ATTEND Internal Medicine